=== PATIENT | female | born 1980 | race Caucasian/White ===

== ENCOUNTER 2016-03-22 17:48 | Emergency (ER) | payer BC ==
--- NOTE | 2016-03-22 19:35 | ERRECORD ---
[facility] EMERGENCY RECORD HPI FLU-LIKE SYNDROME (19:09 JROB) CHIEF COMPLAINT: Patient presents for evaluation of Chest Congestion. HISTORIAN: History provided by patient, 35 year old female who was diagnosed with "flu" despite negative swab 3 days ago, has been taking OTC meds with limited relief. She now feels like the mucous has moved down into her chest. She wanted to make sure she had pneumonia. SEVERITY: Current severity of pain rated as 5/10. TIME COURSE: Gradual onset of symptoms, Symptoms are worsening. ASSOCIATED WITH: Associated with cough, Associated with diarrhea, Associated with headache, No associated neck pain, No associated shortness of breath. EXACERBATED BY: Patient's condition exacerbated by nothing. RELIEVED BY: Patient's condition relieved by nothing. ROS (19:12 JROB) CONSTITUTIONAL: Historian reports fatigue, denies fever, reports malaise. EYES: Historian denies vision changes. ENT: Historian reports sore throat. CARDIOVASCULAR: Historian denies syncope. RESPIRATORY: Historian reports cough, denies shortness of breath. GI: Historian reports diarrhea, denies vomiting. GENITOURINARY FEMALE: Historian denies dysuria. MUSCULOSKELETAL: Historian reports myalgias. SKIN: Historian denies rash. NEUROLOGIC: Historian reports headache, denies sensory changes. HEMO/LYMPHATIC: Historian denies abnormal blood clotting. ALLERGIC/IMMUNOLOGIC: Historian denies frequent infections. PSYCHIATRIC: Historian denies alcohol abuse, denies drug abuse. NOTES: All systems reviewed, negative except as described above. PAST MEDICAL HISTORY MEDICAL HISTORY: Past medical history includes history of hyperlipidemia, high cholesterol,. (18:15 MCBE) FEMALE SURGICAL HISTORY: Surgical history of tonsillectomy, Notes: as a child along with adnoid removal, Surgical history of cholecystectomy, laparoscopic, Date of surgery 2014, Surgical history of hernia repair, Date of surgery 2014, Surgical history of hysterectomy, Date of surgery 2009, 2016, Surgical history of oophorectomy, of the right ovary, Date of surgery 2015. (18:15 MCBE) PSYCHIATRIC HISTORY: Psychiatric history includes, anxiety, depression, PTSD - CHILDHOOD. (18:15 MCBE) SOCIAL HISTORY: Patient drinks socially, rarely, Patient denies drug use, Patient has no smoking history, Lives at home, with family. (18:15 MCBE) &a-1R&a+25V*p+0X*z2086E*c202B*c15G*c2P*p-0X&a-25V&a+1R Name: Lindy Barger : 1980 F35 MedRec: [id number] AcctNum: [id number] Prepared: Petra Mar 22, 2016 19:23 by Interface Page 1 of 3 pMD [facility] EMERGENCY RECORD NOTES: Nursing records reviewed, Agree with nursing records, Medication list reviewed. (19:13 JROB) KNOWN ALLERGIES doxycycline hyclate RisperDAL CURRENT MEDICATIONS (18:12 MCBE) BuSpar: TABLET : Strength - 5 mg : ORAL Patient Dose: 15 mg Oral 2 times a day. PROzac: CAPSULE : Strength - 40 mg : ORAL Patient Dose: 60 mg Oral once a day. Ativan: TABLET : Strength - 1 mg : ORAL Patient Dose: 1 mg Oral once a day (at bedtime). VITAL SIGNS VITAL SIGNS: BP: 133/77, Pulse: 103, Resp: 18, Temp: 99.0 (Oral), Pain: 5, O2 sat: 98 on Room Air, Time: 03/22/2016 18:06. (18:06 MCBE) BP: 137/94, Pulse: 90, Resp: 18 (Non-Labored), Temp: 98.6 (Oral), O2 sat: 97 on Room Air, Time: 03/22/2016 19:11. (19:11 KASA) PHYSICAL EXAM (19:12 JROB) CONSTITUTIONAL: Vital signs reviewed, Patient afebrile, Pulse, tachycardic, Respiratory rate normal, Patient alert and oriented to person, place and time. HEAD: Head exam normal, Head exam included findings of head atraumatic. EYES: Eye exam normal, Pupils equally round and reactive to light, Extraocular muscles intact. ENT: Pharynx, injected bilaterally, Mouth exam normal. NECK: Neck exam normal, no cervical adenopathy. RESPIRATORY CHEST: Respiratory and chest exam normal, Breath sounds clear, No wheezing, No rales, No rhonchi. CARDIOVASCULAR: Cardiovascular exam included findings of, rate tachycardic, rhythm regular. ABDOMEN FEMALE: Abdominal exam included findings of abdomen nontender, no distension, no peritoneal signs. BACK: Back exam normal, Back exam included findings of normal inspection. UPPER EXTREMITY: Upper extremity exam normal, Upper extremity exam included findings of inspection normal, Motor strength normal, Sensation intact. LOWER EXTREMITY: Lower extremity exam normal, Lower extremity exam included findings of inspection normal, Motor strength normal, Sensation intact. NEURO: Neuro exam findings include patient oriented to person, &a-1R&a+25V*p+0X*k2230X*c202B*c15G*c2P*p-0X&a-25V&a+1R Name: Lindy Barger : 1980 F35 MedRec: [id number] AcctNum: [id number] Prepared: Petra Mar 22, 2016 19:23 by Interface Page 2 of 3 pMD [facility] EMERGENCY RECORD place and time, no focal motor deficits, no focal sensory deficits. SKIN: Skin exam normal, Skin exam included findings of skin warm, dry. RADIOLOGYINTERPRETATION (19:13 JROB) CHEST: Chest films negative, no infiltrates, no congestive heart failure, no effusion. LENS GRINDER AND POLISHER: Preliminary review of x-rays by, Radiologist. DOCTOR NOTES (19:13 JROB) TEXT: CXR clear. Patient tolerated some oral fluids, repeat heart rate improved to 90's. Patient reassured, no evidence of pneumonia. Discussed other OTC remedies for symptoms. Will d/c home to follow up in clinic. PATIENT STATUS: Patient has improved since arrival to emergency department. PATIENT PLAN: The patient will be discharged, The patient will follow up with primary care physician. DATA REVIEWED: Xray data reviewed. PROBLEM LIST No recorded problems DIAGNOSIS (19:15 JROB) FINAL: PRIMARY: FLU D/T OTH ID FLU VIR OTH RSP MANF. PRESCRIPTION No recorded prescriptions DISPOSITION PATIENT: Disposition Type: Discharge, Disposition: *Discharge Home. (19:15 JROB) Patient left the department. (19:21 BDON) Humphrey: ADRIEN=AIDE Dotson, Cecilia MEADOWS=MD Harpreet, Chuckie NAYAK=AIDE Gray, Amira STEELE=Magda Martinez &a-1R&a+25V*p+0X*k1417C*c202B*c15G*c2P*p-0X&a-25V&a+1R Name: Lindy Barger : 1980 F35 MedRec: [id number] AcctNum: [id number] Prepared: Petra Mar 22, 2016 19:23 by Interface Page 3 of 3 pMD MTDD
--- NOTE | 2016-03-22 19:36 | PICIS ---
[facility] [place] EMERGENCY RECORD TRIAGE (WedMar 22, 2016 18:12 MCBE) TRIAGE NOTES: WAS DIAGNOSED WITH THE FLU LAST WEDNESDAY. PATIENT REPORTS FEELING BETTER WEDNESDAY. PATIENT REPORTS SHE NOW FEELS WORSE AND IS COUGHING. FEELS LIKE SHE HAS AN INFECTION IN HER CHEST. PATIENT STATES HER COUGH IS NON-PRODUCTIVE. DAYQUIL AND NIGHTQUIL TAKEN. (WedMar 22, 2016 18:12 MCBE) PATIENT: NAME: Lindy Barger, AGE: 35, GENDER: female, : Wed1980, TIME OF GREET: WedMar 22, 2016 17:48, PREFERRED LANGUAGE: Upper Sorbian, ETHNICITY: Not or , ECODE BILLING MAP: [facility], SSN: [id number], Zip Code: [address], KG WEIGHT: 68.04, PHONE: , , , PERSON ID: [id number]. (WedMar 22, 2016 18:12 MCBE) COMPLAINT: FLU IS IN CHEST. (WedMar 22, 2016 18:12 MCBE) ADMISSION: URGENCY: 3 Urgent, ADMISSION SOURCE: Home, TRANSPORT: CAR, BED: TRIAGE. (WedMar 22, 2016 18:12 MCBE) ASSESSMENT: Assessment: BS CLEAR. (18:15 MCBE) IMMUNIZATIONS: Flu vaccine not up to date, Tetanus immunization up to date. (18:15 MCBE) SIRS SCORING: Heart Rate 55-109 (0), Temp range 96.8-101.1 (0), respiratory rate 12-24 (0), Mental Status altered: no (0), Infection or Suspected Infection: No. (18:15 MCBE) TRIAGE SCREENING: Patient denies suicidal ideation, Patient denies presence of domestic violence. (18:15 MCBE) PROVIDERS: TRIAGE NURSE: Magda Martinez. (WedMar 22, 2016 18:12 MCBE) VITAL SIGNS: BP 133/77, Pulse 103, Resp 18, Temp 99.0, (Oral), Pain 5, O2 Sat 98, on Room Air, Time 03/22/2016 18:06. (18:06 MCBE) PREVIOUS VISIT ALLERGIES: doxycycline hyclate, RisperDAL. (WedMar 22, 2016 18:12 MCBE) doxycycline hyclate, RisperDAL. (18:15 MCBE) KNOWN ALLERGIES doxycycline hyclate RisperDAL CURRENT MEDICATIONS (18:12 MCBE) BuSpar: TABLET : Strength - 5 mg : ORAL Patient Dose: 15 mg Oral 2 times a day. PROzac: CAPSULE : Strength - 40 mg : ORAL Patient Dose: 60 mg Oral once a day. Ativan: TABLET : Strength - 1 mg : ORAL Patient Dose: 1 mg Oral once a day (at bedtime). VITAL SIGNS VITAL SIGNS: BP: 133/77, Pulse: 103, Resp: 18, Temp: 99.0 (Oral), Pain: 5, O2 sat: 98 on Room Air, Time: 03/22/2016 18:06. (18:06 MCBE) &a-1R&a+25V*p+0X*n2034B*c202B*c15G*c2P*p-0X&a-25V&a+1R Name: BargerLindy Jonathan : 1980 F35 MedRec: [id number] AcctNum: [id number] Prepared: Petra Mar 22, 2016 19:28 by Interface Page [address] [facility] [place] EMERGENCY RECORD BP: 137/94, Pulse: 90, Resp: 18 (Non-Labored), Temp: 98.6 (Oral), O2 sat: 97 on Room Air, Time: 03/22/2016 19:11. [facility] NURSING PROCEDURE: DISCHARGE NOTE (19:18 BDON) DISCHARGE: Patient discharged to home, ambulating without assistance, accompanied by //partner, Summary of Care printed/ provided, Patient requested and was provided an electronic copy of Discharge Instructions, Transition record given to patient, Discharge instructions given to patient, Simple or moderate discharge teaching performed, Patient treated and evaluated by physician. NURSING PROCEDURE: NURSE NOTES (18:56 KASA) NURSES NOTES: Beverage given to patient, Notes: per ERMD. NURSING PROCEDURE: TRANSPORT TO TESTS (19:19 KPEA) TRANSPORT TO TESTS: Patient transported to x-ray, Accompanied by x-ray parking enforcement technician, Patient arrived in location at 1825, Patient departed location at 1831. ORDER DETAILS Order Name: Miscellaneous Nurse Order(s), Status: Done, Time: 18:54 03/22/2016, User: IVETTE, - Ordered for: MD Mullins Joseph, - Entered by: MD Mullins Joseph - Petra Mar 22, 2016 18:43, - Quantity: 1, Order Name: XR Chest Pa & Lat STANDARD, Status: Active, Time: 18:18 03/22/2016, User: IVETTE, - Ordered for: MD Mullins Joseph, - Entered by: Magda Martinez - Petra Mar 22, 2016 18:18, - Quantity: 1. HPI FLU-LIKE SYNDROME (19:09 JROB) CHIEF COMPLAINT: Patient presents for evaluation of Chest Congestion. HISTORIAN: History provided by patient, 35 year old female who was diagnosed with "flu" despite negative swab 3 days ago, has been taking OTC meds with limited relief. She now feels like the mucous has moved down into her chest. She wanted to make sure she had pneumonia. SEVERITY: Current severity of pain rated as 5/10. TIME COURSE: Gradual onset of symptoms, Symptoms are worsening. ASSOCIATED WITH: Associated with cough, Associated with diarrhea, Associated with headache, No associated neck pain, No associated shortness of breath. EXACERBATED BY: Patient's condition exacerbated by nothing. RELIEVED BY: Patient's condition relieved by nothing. ROS (19:12 JROB) &a-1R&a+25V*p+0X*r5027B*c202B*c15G*c2P*p-0X&a-25V&a+1R Name: Lindy Barger : 1980 F35 MedRec: [id number] AcctNum: [id number] Prepared: Petra Mar 22, 2016 19:28 by Interface Page [address] [facility] [place] EMERGENCY RECORD CONSTITUTIONAL: Historian reports fatigue, denies fever, reports malaise. EYES: Historian denies vision changes. ENT: Historian reports sore throat. CARDIOVASCULAR: Historian denies syncope. RESPIRATORY: Historian reports cough, denies shortness of breath. GI: Historian reports diarrhea, denies vomiting. GENITOURINARY FEMALE: Historian denies dysuria. MUSCULOSKELETAL: Historian reports myalgias. SKIN: Historian denies rash. NEUROLOGIC: Historian reports headache, denies sensory changes. HEMO/LYMPHATIC: Historian denies abnormal blood clotting. ALLERGIC/IMMUNOLOGIC: Historian denies frequent infections. PSYCHIATRIC: Historian denies alcohol abuse, denies drug abuse. NOTES: All systems reviewed, negative except as described above. PAST MEDICAL HISTORY MEDICAL HISTORY: Past medical history includes history of hyperlipidemia, high cholesterol,. (18:15 MCBE) FEMALE SURGICAL HISTORY: Surgical history of tonsillectomy, Notes: as a child along with adnoid removal, Surgical history of cholecystectomy, laparoscopic, Date of surgery 2014, Surgical history of hernia repair, Date of surgery 2014, Surgical history of hysterectomy, Date of surgery 2009, 2015, Surgical history of oophorectomy, of the right ovary, Date of surgery 2015. (18:15 MCBE) PSYCHIATRIC HISTORY: Psychiatric history includes, anxiety, depression, PTSD - CHILDHOOD. (18:15 MCBE) SOCIAL HISTORY: Patient drinks socially, rarely, Patient denies drug use, Patient has no smoking history, Lives at home, with family. (18:15 MCBE) NOTES: Nursing records reviewed, Agree with nursing records, Medication list reviewed. (19:13 JROB) PHYSICAL EXAM (19:12 JROB) CONSTITUTIONAL: Vital signs reviewed, Patient afebrile, Pulse, tachycardic, Respiratory rate normal, Patient alert and oriented to person, place and time. HEAD: Head exam normal, Head exam included findings of head atraumatic. EYES: Eye exam normal, Pupils equally round and reactive to light, Extraocular muscles intact. ENT: Pharynx, injected bilaterally, Mouth exam normal. NECK: Neck exam normal, no cervical adenopathy. RESPIRATORY CHEST: Respiratory and chest exam normal, Breath sounds clear, No wheezing, No rales, No rhonchi. CARDIOVASCULAR: Cardiovascular exam included findings &a-1R&a+25V*p+0X*r7808F*c202B*c15G*c2P*p-0X&a-25V&a+1R Name: Lindy Barger : 1980 F35 MedRec: [id number] AcctNum: [id number] Prepared: Petra Mar 22, 2016 19:28 by Interface Page [address] [facility] [place] EMERGENCY RECORD of, rate tachycardic, rhythm regular. ABDOMEN FEMALE: Abdominal exam included findings of abdomen nontender, no distension, no peritoneal signs. BACK: Back exam normal, Back exam included findings of normal inspection. UPPER EXTREMITY: Upper extremity exam normal, Upper extremity exam included findings of inspection normal, Motor strength normal, Sensation intact. LOWER EXTREMITY: Lower extremity exam normal, Lower extremity exam included findings of inspection normal, Motor strength normal, Sensation intact. NEURO: Neuro exam findings include patient oriented to person, place and time, no focal motor deficits, no focal sensory deficits. SKIN: Skin exam normal, Skin exam included findings of skin warm, dry. EVENTS TRANSFER: Triage to Emergency Triage. (Petra Mar 22, 2016 18:12 MCBE) Removed from Emergency Triage. (19:21 BDON) RADIOLOGYINTERPRETATION (19:13 JROB) CHEST: Chest films negative, no infiltrates, no congestive heart failure, no effusion. COUNTER CLERK: Preliminary review of x-rays by, Radiologist. O2SAT INTERPRETATION (19:13 JROB) O2SAT: Single pulse oximetry, Oxygen saturation 97%, on room air, Oxygen saturation interpretation: Normal, No intervention required. DOCTOR NOTES (19:13 JROB) TEXT: CXR clear. Patient tolerated some oral fluids, repeat heart rate improved to 90's. Patient reassured, no evidence of pneumonia. Discussed other OTC remedies for symptoms. Will d/c home to follow up in clinic. PATIENT STATUS: Patient has improved since arrival to emergency department. PATIENT PLAN: The patient will be discharged, The patient will follow up with primary care physician. DATA REVIEWED: Xray data reviewed. PROBLEM LIST No recorded problems DIAGNOSIS (19:15 JROB) FINAL: PRIMARY: FLU D/T OTH ID FLU VIR OTH RSP MANF. DISPOSITION PATIENT: Disposition Type: Discharge, Disposition: *Discharge Home. (19:15 JROB) &a-1R&a+25V*p+0X*b3598K*c202B*c15G*c2P*p-0X&a-25V&a+1R Name: Lindy Barger : 1980 F35 MedRec: [id number] AcctNum: [id number] Prepared: Petra Mar 22, 2016 19:28 by Interface Page [address] [facility] [place] EMERGENCY RECORD Patient left the department. (19:21 BDON) INSTRUCTION (19:15 JROB) DISCHARGE: INFLUENZA (ADULT). FOLLOWUP: Tory, MD, Caitlin, Ariadne, [address] [facility] [address], [facility] [address], , Follow up with Primary Care Physician in 3-4 days. SPECIAL: Follow-up with your PCP We hope you feel better soon! We are always happy to take care of you and your family! Return to the ER immediately for any new, concerning, or worsening symptoms. PRESCRIPTION No recorded prescriptions IMAGING (19:20 BDON) *DISCHARGE INSTRUCTIONS RECEIPT: Image captured from scanner. *SUPPLY CHARGE SHEET: Image captured from scanner. ADMIN DIGITAL SIGNATURE: MD Harpreet, Chuckie. (19:15 JROB) AIDE Dotson, Cecilia. (19:21 BDON) Humphrey: ADRIEN=AIDE Dotosn, Cecilia MEADOWS=MD Mullins Joseph KASA=AIDE Gray Kathy KPEA=ERIC Lozano Kim MCBE=Magda Martinez &a-1R&a+25V*p+0X*q5794A*c202B*c15G*c2P*p-0X&a-25V&a+1R Name: Denita Lindy Jonathan : 1980 F35 MedRec: [id number] AcctNum: [id number] Prepared: Petra Mar 22, 2016 19:28 by Interface Page 5 of 5 pMD MTDD
--- NOTE | 2016-03-22 20:56 | RAD ---
TWO VIEWS CHEST: Date: 03-22-16 Comparison: None. History: Flu, cough. FINDINGS: Lungs are clear. Heart and mediastinal contours are within normal limits. No acute osseous abnorma lity. IMPRESSION: No acute findings. POS: [facility]
== END 2016-03-22 19:18 | disposition home or self-care (01) ==
LOC: NAV ERS 17:48
DX: J11.1 Influenza due to unidentified influenza virus with other respiratory manifestations (principal); E78.00 Pure hypercholesterolemia, unspecified; E78.5 Hyperlipidemia, unspecified; F41.9 Anxiety disorder, unspecified; F32.9 Major depressive disorder, single episode, unspecified; Z90.49 Acquired absence of other specified parts of digestive tract; Z90.710 Acquired absence of both cervix and uterus; Z79.899 Other long term (current) drug therapy
CPT/HCPCS: 71020; 99283

== ENCOUNTER 2016-06-30 21:51 | Emergency (ER) | payer BC ==
[2016-06-30] MEDS ORDERED: Fluorescein Opthalmic Strip ONE (22:58)
[2016-06-30] MEDS ORDERED: diphenhydrAMINE HCl 25 MG CAP ONE (22:58)
[2016-06-30] MEDS ORDERED: Erythromycin Base 0.5% Oint 1 GM TUBE ONE (23:17)
== END 2016-06-30 23:20 | disposition home or self-care (01) ==
LOC: NAV ERS 21:51
DX: H10.13 Acute atopic conjunctivitis, bilateral (principal); E78.5 Hyperlipidemia, unspecified; E78.00 Pure hypercholesterolemia, unspecified; F41.9 Anxiety disorder, unspecified; F32.9 Major depressive disorder, single episode, unspecified; F43.10 Post-traumatic stress disorder, unspecified
CPT/HCPCS: 99282

== ENCOUNTER 2016-07-19 19:03 | Emergency (ER) | payer BC ==
[2016-07-19] MEDS ORDERED: Sodium Chloride 0.9% 1,000 ML ONE (19:37)
[2016-07-19] MEDS ORDERED: Famotidine/PF 20 mg/2ml Vial ONE (19:37)
[2016-07-19] MEDS ORDERED: Fentanyl 100 MCG/2 ML VIAL ONE ×2 (19:37→22:22)
[2016-07-19] MEDS ORDERED: Ondansetron HCl/PF 4 MG/2 ML Vial ONE (19:37)
[2016-07-19] MEDS ORDERED: Ketorolac Tromethamine 30 MG/ML VIAL ONE (19:37)
[2016-07-19 20:17] LABS: Bilirubin Negative (Negative); Blood, Urine Negative (Negative); Clarity Clear (Clear); Glucose, Urine (Dipstick) Negative (Negative); Leukocyte Negative (Negative); Nitrite Negative (Negative); Protein, Urine (Dipstick) Negative (Neg-Trace); Urobilinogen 0.2 mg/dL (0.2-1.0)
[2016-07-19 20:23] LABS: #Basophils 0.1 thou/uL (0.0-0.2); #Eosinphils 0.6 thou/uL (0.0-0.7); #Lymphocytes 2.6 thou/uL (1.20-3.40); #Monocytes 0.4 thou/uL (0.11-0.59); #Neutrophils 4.2 thou/uL (1.40-6.50); %Basophils 1.3 % (0.0-1.0); %Eosinophils 7.4 % (0.0-10.0); %Lymphocytes 32.7 % (21.0-51.0); %Monocytes 5.6 % (0.0-10.0); %Neutrophils 53.1 % (42.0-75.0); Hemoglobin 13.9 g/dL (12.0-16.0); Mean Corpuscular HGB CONC 33.5 g/dL (32.0-36.0); Mean Corpuscular Hemoglobin 32.4 pg (27.0-31.0); Mean Corpuscular Volume 96.9 fl (81.0-99.0); Mean Platelet Volume 9.2 fL (7.4-10.4); Platelet Count 213 thou/uL (130-400); RBC Distribution Width 11.5 % (11.5-14.5); Red Blood Cell (RBC) Count 4.29 mill/uL (4.20-5.40); White Blood Cell (WBC) Count 7.9 thou/uL (4.8-10.8)
[2016-07-19 20:37] LABS: Amylase 70 U/L (25-125); Anion Gap 16 mmol/L (10-20); BUN (Urea Nitrogen) 8 mg/dL (7.0-18.7); Calc. Creatinine Clearance 0 mL/min (70-130); Calcium 9.6 mg/dL (7.8-10.44); Carbon Dioxide 27 mmol/L (22-29); Chloride 103 mmol/L (98-107); Estimated GFR-MDRD 81; Glucose 90 mg/dL (70-105); Lipase 57 U/L (8-78); Potassium 3.8 mmol/L (3.5-5.1); Sodium 142 mmol/L (136-145)
[2016-07-19 22:33] LABS: Pregnancy Test - Urine (BHCG) NEGATIVE (NEGATIVE); Pregu Control Bar Appear? YES (CONTROL BAR)
--- NOTE | 2016-07-19 22:48 | CT ---
ABDOMEN CT WITH CONTRAST PELVIC CT WITH CONTRAST: History: Pain. Comparison: 12-06-15 Technique: An abdomen and pelvic CT are performed with oral and IV contrast. Coronal reformatted sammy ges are submitted for interpretation. FINDINGS: ABDOMEN CT: Minimal chronic changes in the lung bases. Heart size is normal. No pericardial effusion. The cervic othoracic aorta and abdominal aorta have a normal caliber. No periaortic fat stranding. Scattered no nspecific periaortic and aortocaval lymph nodes. No gastrohepatic, retrocrural, or periportal lymphadenopathy. Surgically absent gallbladder. Intra and extrahepatic portal vein is patent. Liver, spleen, pancreas, and bilateral adrenal glands have appropriate enhancement. Symmetric enhancement of the kidneys. Subcentimeter hypodensity in the lower pole of the left kidney is similar to the previous examination and cannot be further characterized. Bilaterally, no obstructive neuropathy. Note, the right kidney is rotated. Visualized ureters are un remarkable. There are a few scattered nonspecific mesenteric lymph nodes. No mass, free air or free fluid. Gastric mucosa, duodenum, and small bowel loops have an overall normal caliber. No obvious abnormali ty. Normal caliber appendix. Ileocecal junction is normal. Scattered fecal material in a nondistende d, nondilated colon. PELVIC CT: Surgically absent uterus. Urinary bladder is unremarkable. In the left adnexa, there appears to be an peripherally enhancing, centrally hypodense focus measuri ng 1.4 x 1.3 cm. Left ovary with a dominant follicle or possible cyst is favored. Follow up in 8-10 weeks is recommended to ensure resolution. This left ovary is present on the examination from 6. Follicles were identified. There are no osteoblastic or osteolytic lesions. IMPRESSION: 1. No acute abnormality in the abdomen. 2. Left adnexal structure, compatible with an ovary. There appears to be a complex cyst associated w ith the left ovary. Follow up imaging to ensure resolution is recommended. POS: [facility]
== END 2016-07-19 23:15 | disposition home or self-care (01) ==
LOC: NAV ERS 19:03
DX: R10.9 Unspecified abdominal pain (principal); R11.2 Nausea with vomiting, unspecified; E78.5 Hyperlipidemia, unspecified; E78.00 Pure hypercholesterolemia, unspecified; F41.9 Anxiety disorder, unspecified; F32.9 Major depressive disorder, single episode, unspecified; F43.10 Post-traumatic stress disorder, unspecified; Z79.899 Other long term (current) drug therapy
CPT/HCPCS: 74177; 80048; 81003; 81025; 82150; 83690; 85025; J1885; J2405; J3010; J7050; S0028

== ENCOUNTER 2016-08-28 06:57 | Outpatient (CLI) | payer BC | END 2016-08-28 06:58 | disposition home or self-care (01) | LOC: NAV LABSP 06:57 | PROVIDERS: ATTEND Family Medicine | DX: R19.7 Diarrhea, unspecified (principal) | CPT/HCPCS: 87015; 87045; 87046; 87077; 87324; 87449; 87899 ==

== ENCOUNTER 2016-10-06 14:29 | Outpatient (CLI) | payer BC ==
--- NOTE | 2016-10-06 15:41 | RAD ---
KUB: 10/06/16 HISTORY: Right lower quadrant pain. Unable to urinate. The bowel gas pattern appears nonobstructive. I do not see a distended bladder. No renal calculi are noted. Postop cholecystectomy changes are seen. IMPRESSION: No acute findings. POS: [facility]
== END 2016-10-06 14:30 | disposition home or self-care (01) ==
LOC: NAV RAD 14:29
PROVIDERS: ATTEND Family Medicine
DX: R10.31 Right lower quadrant pain (principal)
CPT/HCPCS: 74000

== ENCOUNTER 2016-10-08 15:46 | Emergency (ER) | payer BC ==
[2016-10-08 16:37] LABS: Bilirubin Negative (Negative); Blood, Urine Trace (Negative); Clarity Clear (Clear); Glucose, Urine (Dipstick) Negative (Negative); Leukocyte Negative (Negative); Nitrite Negative (Negative); Protein, Urine (Dipstick) Negative (Neg-Trace); Specific Gravity, Urine 1.015 (1.005-1.030); Urobilinogen 0.2 mg/dL (0.2-1.0)
[2016-10-08 16:39] LABS: #Basophils 0.1 thou/uL (0.0-0.2); #Eosinphils 0.5 thou/uL (0.0-0.7); #Lymphocytes 2.3 thou/uL (1.20-3.40); #Monocytes 0.6 thou/uL (0.11-0.59); #Neutrophils 3.8 thou/uL (1.40-6.50); %Basophils 1.2 % (0.0-1.0); %Eosinophils 6.3 % (0.0-10.0); %Lymphocytes 31.4 % (21.0-51.0); %Monocytes 7.8 % (0.0-10.0); %Neutrophils 53.3 % (42.0-75.0); Hemoglobin 13.4 g/dL (12.0-16.0); Mean Corpuscular HGB CONC 33.2 g/dL (32.0-36.0); Mean Corpuscular Hemoglobin 32.4 pg (27.0-31.0); Mean Corpuscular Volume 97.7 fl (81.0-99.0); Mean Platelet Volume 8.6 fL (7.4-10.4); Platelet Count 199 thou/uL (130-400); RBC Distribution Width 11.3 % (11.5-14.5); Red Blood Cell (RBC) Count 4.15 mill/uL (4.20-5.40); White Blood Cell (WBC) Count 7.2 thou/uL (4.8-10.8)
[2016-10-08] MEDS ORDERED: Ketorolac Tromethamine 30 MG/ML VIAL ONE (16:45)
[2016-10-08 16:58] LABS: ALT (SGPT) 43 U/L (8-55); AST (SGOT) 36 U/L (5-34); Albumin 4.2 g/dL (3.5-5.0); Alkaline Phosphatase 72 U/L (40-150); Anion Gap 17 mmol/L (10-20); BUN (Urea Nitrogen) 10 mg/dL (7.0-18.7); Bilirubin, Total 0.2 mg/dL (0.2-1.2); Calc. Creatinine Clearance 0 mL/min (70-130); Carbon Dioxide 23 mmol/L (22-29); Chloride 102 mmol/L (98-107); Estimated GFR-MDRD 81; Glucose 101 mg/dL (70-105); Potassium 3.6 mmol/L (3.5-5.1); Protein, Total 7.2 g/dL (6.0-8.3); Sodium 138 mmol/L (136-145)
[2016-10-08 17:05] LABS: Bacteria/HPF 2+ HPF (None Seen); RBC/HPF 0-3 HPF (0-3); Squamous Epithelial 0-3 HPF (0-3)
[2016-10-08] MEDS ORDERED: Sodium Chloride 0.9% 100 ML ONE (17:43)
[2016-10-08] MEDS ORDERED: cefTRIAXone\\ROCEPHIN 1 GM VIAL ONE (17:43)
== END 2016-10-08 18:27 | disposition home or self-care (01) ==
LOC: NAV ERS 15:46
DX: N39.0 Urinary tract infection, site not specified (principal); R10.13 Epigastric pain; E78.5 Hyperlipidemia, unspecified; F32.9 Major depressive disorder, single episode, unspecified; F41.9 Anxiety disorder, unspecified; Z79.899 Other long term (current) drug therapy; Z79.891 Long term (current) use of opiate analgesic
CPT/HCPCS: 80053; 81003; 81015; 85025; 87086; 96365; 96375; J0696; J1885; J7050

== ENCOUNTER 2016-10-09 10:36 | Emergency (ER) | payer BC ==
[2016-10-09] MEDS ORDERED: HYDROcodone/Acetaminophen 10/325 mg Tablet ONE (11:34)
[2016-10-09 12:01] LABS: #Basophils 0.1 thou/uL (0.0-0.2); #Eosinphils 0.4 thou/uL (0.0-0.7); #Lymphocytes 1.6 thou/uL (1.20-3.40); #Monocytes 0.4 thou/uL (0.11-0.59); #Neutrophils 4.2 thou/uL (1.40-6.50); %Basophils 0.8 % (0.0-1.0); %Eosinophils 5.6 % (0.0-10.0); %Lymphocytes 24.4 % (21.0-51.0); %Neutrophils 63.2 % (42.0-75.0); Hemoglobin 13.2 g/dL (12.0-16.0); Mean Corpuscular HGB CONC 32.9 g/dL (32.0-36.0); Mean Corpuscular Hemoglobin 31.7 pg (27.0-31.0); Mean Corpuscular Volume 96.4 fl (81.0-99.0); Mean Platelet Volume 8.3 fL (7.4-10.4); Platelet Count 178 thou/uL (130-400); RBC Distribution Width 11.4 % (11.5-14.5); Red Blood Cell (RBC) Count 4.17 mill/uL (4.20-5.40); White Blood Cell (WBC) Count 6.6 thou/uL (4.8-10.8)
[2016-10-09 12:05] LABS: Pregnancy Test - Urine (BHCG) Negative (NEGATIVE); Pregu Control Background? CLEAR/WHITE (CLR/WHITE); Pregu Control Bar Appear? YES (CONTROL BAR); Specific Gravity 1.005 (1.002-1.036)
[2016-10-09 12:12] LABS: Anion Gap 16 mmol/L (10-20); BUN (Urea Nitrogen) 8 mg/dL (7.0-18.7); Calc. Creatinine Clearance 0 mL/min (70-130); Carbon Dioxide 22 mmol/L (22-29); Chloride 106 mmol/L (98-107); Estimated GFR-MDRD 88; Glucose 94 mg/dL (70-105); Potassium 3.8 mmol/L (3.5-5.1); Sodium 140 mmol/L (136-145)
--- NOTE | 2016-10-09 13:53 | RAD ---
ABDOMEN 2 VIEWS: HISTORY: Abdominal pain and swelling, right-sided abdominal pain. FINDINGS/IMPRESSION: There are changes of cholecystectomy. No free air or differential fluid levels are seen. The bowel gas pattern is unremarkable. There is fecal material in the colon. No suspicious calcifications a re seen. POS: [facility]
== END 2016-10-09 12:17 | disposition home or self-care (01) ==
LOC: NAV ERS 10:36
DX: R10.11 Right upper quadrant pain (principal); R10.12 Left upper quadrant pain; R10.31 Right lower quadrant pain; F41.9 Anxiety disorder, unspecified; F32.9 Major depressive disorder, single episode, unspecified; E78.5 Hyperlipidemia, unspecified; Z90.49 Acquired absence of other specified parts of digestive tract; Z90.710 Acquired absence of both cervix and uterus; E78.00 Pure hypercholesterolemia, unspecified; Z79.899 Other long term (current) drug therapy
CPT/HCPCS: 74020; 80048; 81025; 85025

== ENCOUNTER 2017-07-12 19:02 | Emergency (ER) | payer BC ==
[2017-07-12] MEDS ORDERED: Promethazine HCl 25 MG/ML VIAL ONE (19:58)
[2017-07-12] MEDS ORDERED: HYDROcodone/Acetaminophen 10/325 mg Tablet ONE (19:58)
== END 2017-07-12 20:35 | disposition home or self-care (01) ==
LOC: NAV ERS 19:02
DX: G43.909 Migraine, unspecified, not intractable, without status migrainosus (principal); E78.5 Hyperlipidemia, unspecified; F41.9 Anxiety disorder, unspecified; F43.10 Post-traumatic stress disorder, unspecified; Z79.899 Other long term (current) drug therapy
CPT/HCPCS: 93005; 96372; J2550

== ENCOUNTER 2017-07-13 19:30 | Emergency (ER) | payer BC ==
[2017-07-13] MEDS ORDERED: Acetaminophen 500 MG TAB ONE (20:14)
== END 2017-07-13 21:02 | disposition home or self-care (01) ==
LOC: NAV ERS 19:30
DX: I10 Essential (primary) hypertension (principal); R51 Headache; E78.5 Hyperlipidemia, unspecified; F41.9 Anxiety disorder, unspecified; F32.9 Major depressive disorder, single episode, unspecified; F43.10 Post-traumatic stress disorder, unspecified; Z79.899 Other long term (current) drug therapy
CPT/HCPCS: 99283

== ENCOUNTER 2017-09-07 20:58 | Emergency (ER) | payer BC ==
[2017-09-07] MEDS ORDERED: Sulfameth/Trimethoprim DS 800-160mg TAB ONE (21:35)
== END 2017-09-07 21:37 | disposition home or self-care (01) ==
LOC: NAV ERS 20:58
DX: R21 Rash and other nonspecific skin eruption (principal); G43.909 Migraine, unspecified, not intractable, without status migrainosus; E78.5 Hyperlipidemia, unspecified; F41.9 Anxiety disorder, unspecified; F31.9 Bipolar disorder, unspecified; F43.10 Post-traumatic stress disorder, unspecified; Z79.899 Other long term (current) drug therapy
CPT/HCPCS: 99282

== ENCOUNTER 2018-06-21 14:17 | Emergency (ER) | payer BC ==
--- NOTE | 2018-06-21 15:12 | RAD ---
FEXAM: Chest PA and lateral: HISTORY: Intermittent tachycardia COMPARISON: 03/22/2016 FINDINGS: Heart: Normal size Pulmonary vessels: Normal Costophrenic angles: Costophrenic angles are clear. Lungs: No mass consolidation or masses. Pneumothorax: No pneumothorax Osseous structures: No osseous abnormalities IMPRESSION: No significant acute intrathoracic disease.
[2018-06-21 15:31] LABS: #Basophils 0.1 thou/uL (0.0-0.2); #Eosinphils 0.5 thou/uL (0.0-0.7); #Lymphocytes 1.2 thou/uL (1.20-3.40); #Monocytes 0.3 thou/uL (0.11-0.59); %Basophils 1.2 % (0.0-1.0); %Eosinophils 6.9 % (0.0-10.0); %Lymphocytes 17.3 % (21.0-51.0); %Monocytes 3.7 % (0.0-10.0); %Neutrophils 70.9 % (42.0-75.0); Hemoglobin 13.8 g/dL (12.0-16.0); Mean Corpuscular HGB CONC 31.1 g/dL (32.0-36.0); Mean Corpuscular Hemoglobin 31.4 pg (27.0-31.0); Mean Platelet Volume 7.2 fL (7.4-10.4); Platelet Count 276 thou/uL (130-400); RBC Distribution Width 13.1 % (11.5-14.5); Red Blood Cell (RBC) Count 4.41 mill/uL (4.20-5.40); White Blood Cell (WBC) Count 7.1 thou/uL (4.8-10.8)
[2018-06-21] MEDS ORDERED: Ondansetron ODT 4 MG TAB ONE (15:33)
[2018-06-21] MEDS ORDERED: Ondansetron PF 4 MG/2 ML Vial ONE (15:33)
[2018-06-21] MEDS ORDERED: Sodium Chloride 0.9% 1,000 ML ONE (15:33)
[2018-06-21 15:37] LABS: Bilirubin Negative (Negative); Blood, Urine Negative (Negative); Clarity Clear (Clear); Glucose, Urine (Dipstick) Negative (Negative); Leukocyte Negative (Negative); Nitrite Negative (Negative); Protein, Urine (Dipstick) Negative (Neg-Trace); Urobilinogen 0.2 mg/dL (0.2-1.0)
[2018-06-21 15:48] LABS: Amphetamine Not Detected (NotDetected); Barbiturates Screen Not Detected (NotDetected); Benzodiazepine Screen Detected (NotDetected); Cocaine Metabolite Screen Not Detected (NotDetected); Medtox Control Line Valid? VALID (VALID); Methadone Detected (NotDetected); Methamphetamine Not Detected (NotDetected); Opiate Screen Detected (NotDetected); Oxycodone Screen Not Detected (NotDetected); Phencyclidine (PCP) Not Detected (NotDetected); THC/Cannabinoid Screen Not Detected (NotDetected); Tricyclic Screen Detected (NotDetected)
[2018-06-21 15:54] LABS: ALT (SGPT) 19 U/L (8-55); AST (SGOT) 23 U/L (5-34); Albumin 4.5 g/dL (3.5-5.0); Alkaline Phosphatase 69 U/L (40-150); Anion Gap 15 mmol/L (10-20); BUN (Urea Nitrogen) 14 mg/dL (7.0-18.7); Bilirubin, Total 0.2 mg/dL (0.2-1.2); Calc. Creatinine Clearance 0 mL/min (70-130); Calcium 9.4 mg/dL (7.8-10.44); Carbon Dioxide 24 mmol/L (22-29); Chloride 104 mmol/L (98-107); Estimated GFR-MDRD 75; Globulin 2.7 g/dL (2.4-3.5); Glucose 94 mg/dL (70-105); Potassium 4.8 mmol/L (3.5-5.1); Protein, Total 7.2 g/dL (6.0-8.3); Sodium 138 mmol/L (136-145)
[2018-06-21] MEDS ORDERED: Acetaminophen 500 MG TAB ONE (16:36)
== END 2018-06-21 16:54 | disposition home or self-care (01) ==
LOC: NAV ERS 14:17
DX: F41.9 Anxiety disorder, unspecified (principal); E78.5 Hyperlipidemia, unspecified; G43.909 Migraine, unspecified, not intractable, without status migrainosus; F43.10 Post-traumatic stress disorder, unspecified; F32.9 Major depressive disorder, single episode, unspecified; Z79.899 Other long term (current) drug therapy
CPT/HCPCS: 71046; 80053; 80306; 81003; 84443; 84484; 85025; 96361; 96374; J2405; J7050; Q0162

== ENCOUNTER 2018-09-17 17:11 | Emergency (ER) | payer BC ==
[~2018-09-17 17:11] MED LIST: Iopamidol 370 76% 100 ML VIAL ONE
[2018-09-17] MEDS ORDERED: diphenhydrAMINE 50 MG/ML VIAL ONE (17:33)
[2018-09-17] MEDS ORDERED: Sodium Chloride 0.9% 1,000 ML ONE (17:33)
[2018-09-17] MEDS ORDERED: Morphine 4 MG/ML VIAL ONE (17:33)
[2018-09-17 17:46] LABS: #Basophils 0.1 thou/uL (0.0-0.2); #Eosinphils 0.3 thou/uL (0.0-0.7); #Lymphocytes 1.3 thou/uL (1.20-3.40); #Monocytes 0.3 thou/uL (0.11-0.59); #Neutrophils 4.5 thou/uL (1.40-6.50); %Basophils 0.8 % (0.0-1.0); %Eosinophils 5.1 % (0.0-10.0); %Lymphocytes 20.3 % (21.0-51.0); %Monocytes 4.7 % (0.0-10.0); Mean Corpuscular HGB CONC 32.2 g/dL (32.0-36.0); Mean Corpuscular Hemoglobin 31.3 pg (27.0-31.0); Mean Corpuscular Volume 97.3 fL (78.0-98.0); Mean Platelet Volume 8.3 fL (7.4-10.4); Platelet Count 246 thou/uL (130-400); RBC Distribution Width 11.7 % (11.5-14.5); Red Blood Cell (RBC) Count 4.47 mill/uL (4.20-5.40); White Blood Cell (WBC) Count 6.6 thou/uL (4.8-10.8)
[2018-09-17 18:00] LABS: ALT (SGPT) 24 U/L (8-55); AST (SGOT) 29 U/L (5-34); Albumin 4.6 g/dL (3.5-5.0); Alkaline Phosphatase 76 U/L (40-150); Anion Gap 18 mmol/L (10-20); BUN (Urea Nitrogen) 12 mg/dL (7.0-18.7); Bilirubin, Total 0.3 mg/dL (0.2-1.2); Calc. Creatinine Clearance 0 mL/min (70-130); Calcium 9.4 mg/dL (7.8-10.44); Carbon Dioxide 21 mmol/L (22-29); Chloride 104 mmol/L (98-107); Estimated GFR-MDRD 73; Globulin 3.1 g/dL (2.4-3.5); Glucose 121 mg/dL (70-105); Lipase 26 U/L (8-78); Potassium 3.5 mmol/L (3.5-5.1); Protein, Total 7.7 g/dL (6.0-8.3); Sodium 139 mmol/L (136-145)
--- NOTE | 2018-09-17 18:37 | CT ---
EXAM: Abdomen and pelvic CT scan with contrast: HISTORY: Abdominal pain prior hysterectomy COMPARISON: 07/19/2016 FINDINGS: Small hiatal hernia. The visualized lung bases are clear. Liver: Unremarkable. Gallbladder:Status post cholecystectomy. Dilated common bile duct without intrahepatic ductal dilatat ion. Pancreas:Unremarkable Spleen:Unremarkable. Adrenal glands:Unremarkable. Kidneys:No renal calculus or acute obstruction.There are some rotational changes of both kidneys. Bilateral renal cysts. No evidence for bowel obstruction. No CT evidence for acute appendicitis. The urinary bladder is unremarkable. No abscess, adenopathy, or abnormal fluid collection within the abdomen or pelvis. IMPRESSION: Small hiatal hernia. Small bilateral renal cysts. Status post cholecystectomy with some common duct d ilatation but no intrahepatic ductal dilatation. Small fat-containing umbilical hernia and bilateral inguinal hernias. No significant acute process.
[2018-09-17 18:45] LABS: Bilirubin Negative (Negative); Blood, Urine Trace (Negative); Clarity Clear (Clear); Glucose, Urine (Dipstick) Negative (Negative); Leukocyte Negative (Negative); Nitrite Negative (Negative); Protein, Urine (Dipstick) Negative (Neg-Trace); Urobilinogen 0.2 mg/dL (0.2-1.0)
[2018-09-17 19:06] LABS: Bacteria/HPF Rare-Few HPF (None Seen); RBC/HPF 0-3 HPF (0-3); Squamous Epithelial 0-3 HPF (0-3); WBC/HPF None Seen HPF (0-3)
== END 2018-09-17 19:41 | disposition home or self-care (01) ==
LOC: NAV ERS 17:11
DX: R10.84 Generalized abdominal pain (principal); E78.5 Hyperlipidemia, unspecified; G43.909 Migraine, unspecified, not intractable, without status migrainosus; F41.9 Anxiety disorder, unspecified; F32.9 Major depressive disorder, single episode, unspecified; F43.10 Post-traumatic stress disorder, unspecified; Z79.899 Other long term (current) drug therapy
CPT/HCPCS: 74177; 80053; 81003; 81015; 83605; 83690; 85025; 93005; 94760; 96361; 96372; 96374; 96375; J0500; J1200; J2270; J7050; Q9967

== ENCOUNTER 2018-09-18 20:11 | Emergency (ER) | payer BC ==
[2018-09-18] MEDS ORDERED: Sodium Chloride 0.9% 1,000 ML ONE (21:02)
== END 2018-09-18 22:05 | disposition home or self-care (01) ==
LOC: NAV ERS 20:11
DX: R55 Syncope and collapse (principal); E78.5 Hyperlipidemia, unspecified; G43.909 Migraine, unspecified, not intractable, without status migrainosus; F41.9 Anxiety disorder, unspecified; F32.9 Major depressive disorder, single episode, unspecified; F43.10 Post-traumatic stress disorder, unspecified
CPT/HCPCS: 96360; J7050

== ENCOUNTER 2018-11-28 20:28 | Emergency (ER) | payer BC ==
[2018-11-28] MEDS ORDERED: Ondansetron ODT 4 MG TAB ONE (20:39)
[2018-11-28] MEDS ORDERED: diphenhydrAMINE 25 MG CAP ONE (21:27)
== END 2018-11-28 22:09 | disposition home or self-care (01) ==
LOC: NAV ERS 20:28
DX: J06.9 Acute upper respiratory infection, unspecified (principal); T39.8X5A Adverse effect of other nonopioid analgesics and antipyretics, not elsewhere classified, initial encounter; E78.5 Hyperlipidemia, unspecified; E78.00 Pure hypercholesterolemia, unspecified; G43.909 Migraine, unspecified, not intractable, without status migrainosus; F41.9 Anxiety disorder, unspecified; F32.9 Major depressive disorder, single episode, unspecified; F43.10 Post-traumatic stress disorder, unspecified; Z79.899 Other long term (current) drug therapy
CPT/HCPCS: 94640; 94760; J7620; Q0162; Q0163

== ENCOUNTER 2019-01-01 16:52 | Emergency (ER) | payer BC ==
[2019-01-01] MEDS ORDERED: Ondansetron ODT 4 MG TAB ONE (17:31)
--- NOTE | 2019-01-01 17:58 | CT ---
EXAM: Brain CTWithout contrast: HISTORY: Headache seizure COMPARISON: 05/05/2017 FINDINGS: No focal mass or midline shift. No intra or extra-axial hemorrhage. Sinuses and mastoids are clear of acute process. IMPRESSION: No mass or bleed or other significant acute intracranial process.
== END 2019-01-01 18:07 | disposition home or self-care (01) ==
LOC: NAV ERS 16:52
DX: S09.90XA Unspecified injury of head, initial encounter (principal); E78.5 Hyperlipidemia, unspecified; G43.909 Migraine, unspecified, not intractable, without status migrainosus; F41.9 Anxiety disorder, unspecified; F32.9 Major depressive disorder, single episode, unspecified; F43.10 Post-traumatic stress disorder, unspecified; Z79.899 Other long term (current) drug therapy; W19.XXXA Unspecified fall, initial encounter
CPT/HCPCS: 70450; Q0162

== ENCOUNTER 2019-01-11 20:03 | Emergency (ER) | payer BC ==
[2019-01-11] MEDS ORDERED: Ondansetron ODT 4 MG TAB ONE (20:24)
[2019-01-11] MEDS ORDERED: Sodium Chloride 0.9% 1,000 ML ONE (20:27)
[2019-01-11 20:37] LABS: Clarity CLOUDY (Clear)
[2019-01-11 20:40] LABS: Bacteria/HPF 1+ HPF (None Seen); RBC/HPF 0-3 HPF (0-3); Squamous Epithelial 0-3 HPF (0-3); WBC/HPF 21-50 HPF (0-3)
[2019-01-11 20:42] LABS: Pregnancy Test - Urine (BHCG) Negative (Negative); Pregu Control Background? CLEAR/WHITE (CLR/WHITE); Pregu Control Bar Appear? YES (CONTROL BAR); Specific Gravity 1.018 (1.002-1.036)
[2019-01-11 21:05] LABS: #Eosinphils 0.4 thou/uL (0.0-0.7); #Lymphocytes 1.7 thou/uL (1.20-3.40); #Monocytes 0.5 thou/uL (0.11-0.59); #Neutrophils 8.6 thou/uL (1.40-6.50); %Basophils 0.3 % (0.0-1.0); %Eosinophils 3.3 % (0.0-10.0); %Monocytes 4.5 % (0.0-10.0); %Neutrophils 76.8 % (42.0-75.0); Hemoglobin 13.2 g/dL (12.0-16.0); Mean Corpuscular HGB CONC 32.7 g/dL (32.0-36.0); Mean Corpuscular Hemoglobin 32.1 pg (27.0-31.0); Mean Corpuscular Volume 98.1 fL (78.0-98.0); Platelet Count 200 thou/uL (130-400); RBC Distribution Width 12.3 % (11.5-14.5); Red Blood Cell (RBC) Count 4.12 mill/uL (4.20-5.40); White Blood Cell (WBC) Count 11.2 thou/uL (4.8-10.8)
[2019-01-11 21:22] LABS: ALT (SGPT) 18 U/L (8-55); AST (SGOT) 18 U/L (5-34); Albumin 4.3 g/dL (3.5-5.0); Alkaline Phosphatase 90 U/L (40-110); Anion Gap 17 mmol/L (10-20); BUN (Urea Nitrogen) 7 mg/dL (7.0-18.7); Bilirubin, Total 0.2 mg/dL (0.2-1.2); Calc. Creatinine Clearance 0 mL/min (70-130); Calcium 9.5 mg/dL (7.8-10.44); Carbon Dioxide 20 mmol/L (22-29); Chloride 105 mmol/L (98-107); Estimated GFR-MDRD 81; Globulin 2.8 g/dL (2.4-3.5); Glucose 97 mg/dL (70-105); Lipase 34 U/L (8-78); Potassium 3.6 mmol/L (3.5-5.1); Protein, Total 7.1 g/dL (6.0-8.3); Sodium 138 mmol/L (136-145)
--- NOTE | 2019-01-11 22:00 | CT ---
CT Abdomen Pelvis WO Con 01/11/2019 9:14 PM HISTORY: Fever, chills, and diarrhea. Abdominal discomfort starting 2 days ago. COMPARISON: 09/17/2018. Technique: Multiple contiguous axial CT images are obtained through the abdomen and pelvis without IV contrast. Coronal reformats are provided. FINDINGS: This examination is limited for the evaluation of solid organs and vascular structures due to the lac k of intravenous contrast. Lower Chest: within normal limits. Abdomen: Liver: Grossly normal nonenhanced CT appearance. Gallbladder: Surgically absent. Pancreas: Grossly normal nonenhanced CT appearance. Spleen: Grossly normal nonenhanced CT appearance. Adrenals: Grossly normal nonenhanced CT appearance. Kidneys: Subcentimeter hypodense lesion at the inferior pole left kidney is again seen and unchanged. This cannot be further characterized on this exam. This was also present on CT exam in 2017. No renal calculi are seen, and there is no hydronephrosis. Ureters: No ureteral calculus is seen.. Pelvis: Urinary bladder: within normal limits. Reproductive Organs: Evidence of hysterectomy. The left ovary is more prominent than on the prior exa m. This is difficult to further assess without IV contrast but may potentially represent the patient's left ovary with associated cyst. Lymph Nodes: No enlarged lymph nodes. Bowel: Mildly prominent fluid-filled loops of small bowel are seen Appendix: The appendix is normal in caliber. Peritoneum: No free fluid, free air, or fluid collection. Retroperitoneum: within normal limits. Vessels: Abdominal aorta is normal in caliber.. Abdominal Wall: Tiny fat-containing umbilical hernia is again present. Bones: No suspicious sclerotic or lytic osseous lesions are identified. IMPRESSION: 1. No renal or ureteral calculi are seen bilaterally. 2. Prominence of the left ovary compared to prior exam. This is difficult to further assess without I V contrast but may potentially represent the patient's left ovary with associated cyst. Been on clinical concern, a follow-up pelvic ultrasound could be performed. 3. Postcholecystectomy changes. 4. Nonspecific mildly prominent fluid-filled loops of small bowel. 5. No CT evidence of appendicitis. 6. Cholecystectomy. 7. Stable subcentimeter lesion inferior pole left kidney.
[2019-01-11] MEDS ORDERED: Cephalexin 250 MG CAP ONE (22:05)
[2019-01-11] MEDS ORDERED: Acetaminophen 325 MG TAB ONE (22:05)
[2019-01-11] MEDS ORDERED: Ondansetron PF 4 MG/2 ML Vial ONE (22:16)
== END 2019-01-11 22:25 | disposition home or self-care (01) ==
LOC: NAV ERS 20:03
DX: N39.0 Urinary tract infection, site not specified (principal); N12 Tubulo-interstitial nephritis, not specified as acute or chronic; E78.5 Hyperlipidemia, unspecified; F41.9 Anxiety disorder, unspecified; F32.9 Major depressive disorder, single episode, unspecified; F43.10 Post-traumatic stress disorder, unspecified; Z79.899 Other long term (current) drug therapy
CPT/HCPCS: 74176; 80053; 81003; 81015; 81025; 83605; 83690; 85025; 87077; 87086; 94760; 96374; J2405; J7050; Q0162

== ENCOUNTER 2019-02-10 13:20 | Emergency (ER) | payer BC ==
[2019-02-10] MEDS ORDERED: Fentanyl 100 MCG/2 ML VIAL ONE ×2 (14:11→15:31)
[2019-02-10] MEDS ORDERED: Ondansetron PF 4 MG/2 ML Vial ONE (14:11)
[2019-02-10 14:13] LABS: Bilirubin Negative (Negative); Blood, Urine Trace (Negative); Clarity Clear (Clear); Glucose, Urine (Dipstick) Negative (Negative); Leukocyte Negative (Negative); Nitrite Negative (Negative); Protein, Urine (Dipstick) Negative (Neg-Trace); Urobilinogen 0.2 mg/dL (Less than 2)
[2019-02-10 14:14] LABS: Bacteria/HPF Rare-Few HPF (None Seen); RBC/HPF 0-3 HPF (0-3); Squamous Epithelial 0-3 HPF (0-3)
[2019-02-10 14:15] LABS: Amphetamine Detected (NotDetected); Barbiturates Screen Not Detected (NotDetected); Benzodiazepine Screen Detected (NotDetected); Cocaine Metabolite Screen Not Detected (NotDetected); Medtox Control Line Valid? VALID (VALID); Methadone Not Detected (NotDetected); Methamphetamine Not Detected (NotDetected); Opiate Screen Not Detected (NotDetected); Oxycodone Screen Not Detected (NotDetected); Phencyclidine (PCP) Not Detected (NotDetected); THC/Cannabinoid Screen Not Detected (NotDetected); Tricyclic Screen Not Detected (NotDetected)
[2019-02-10 14:19] LABS: #Eosinphils 0.3 thou/uL (0.0-0.7); #Lymphocytes 1.2 thou/uL (1.20-3.40); #Monocytes 0.3 thou/uL (0.11-0.59); #Neutrophils 4.1 thou/uL (1.40-6.50); %Basophils 0.8 % (0.0-1.0); %Eosinophils 4.8 % (0.0-10.0); %Lymphocytes 20.8 % (21.0-51.0); %Neutrophils 68.7 % (42.0-75.0); Hemoglobin 13.6 g/dL (12.0-16.0); Mean Corpuscular HGB CONC 34.1 g/dL (32.0-36.0); Mean Corpuscular Hemoglobin 32.3 pg (27.0-31.0); Mean Corpuscular Volume 94.6 fL (78.0-98.0); Mean Platelet Volume 8.9 fL (7.4-10.4); Platelet Count 222 thou/uL (130-400); RBC Distribution Width 11.9 % (11.5-14.5); Red Blood Cell (RBC) Count 4.22 mill/uL (4.20-5.40)
[2019-02-10 14:39] LABS: ALT (SGPT) 20 U/L (8-55); AST (SGOT) 20 U/L (5-34); Albumin 4.4 g/dL (3.5-5.0); Alkaline Phosphatase 92 U/L (40-110); Anion Gap 17 mmol/L (10-20); BUN (Urea Nitrogen) 8 mg/dL (7.0-18.7); Bilirubin, Total 0.3 mg/dL (0.2-1.2); Calc. Creatinine Clearance 0 mL/min (70-130); Calcium 9.4 mg/dL (7.8-10.44); Carbon Dioxide 24 mmol/L (22-29); Chloride 106 mmol/L (98-107); Estimated GFR-MDRD 77; Globulin 2.5 g/dL (2.4-3.5); Glucose 103 mg/dL (70-105); Lipase 40 U/L (8-78); Potassium 3.9 mmol/L (3.5-5.1); Protein, Total 6.9 g/dL (6.0-8.3); Sodium 143 mmol/L (136-145)
--- NOTE | 2019-02-10 16:00 | CT ---
CT abdomen and pelvis: 02/10/2019 COMPARISON: 01/11/2019 and 09/17/2018 HISTORY: Abdominal pain, left-sided lumbar/back pain TECHNIQUE: Axial CT imaging at 5 mm intervals from lung bases through pubic symphysis with IV contras t. Coronal and sagittal reformatted imaging obtained. FINDINGS: The visualized lung bases are unremarkable. No free intraperitoneal air or fluid. Cholecyst ectomy clips are present. Spleen, liver, pancreas, and adrenal glands are unremarkable. Stable malrotation of right kidney. Stable subcentimeter hypodensity in the posterior mid pole left kidney, too small to characterize. There are a few scattered nonspecific fluid-filled loops of mildly prominent small bowel within the a bdomen/pelvis, unchanged when compared to prior studies performed 09/17/2018 and 01/11/2019. Appendix is unremarkable. No lymphadenopathy noted within the abdomen/pelvis. Osseous structures demonstrate no acute findings. IMPRESSION: Stable CT of the abdomen and pelvis as detailed above. Scattered nonspecific areas of flu id-filled mildly prominent small bowel again noted.
== END 2019-02-10 16:35 | disposition home or self-care (01) ==
LOC: NAV ERS 13:20
DX: R10.32 Left lower quadrant pain (principal); E78.5 Hyperlipidemia, unspecified; G43.909 Migraine, unspecified, not intractable, without status migrainosus; F41.9 Anxiety disorder, unspecified; F32.9 Major depressive disorder, single episode, unspecified; F43.10 Post-traumatic stress disorder, unspecified; Z79.899 Other long term (current) drug therapy
CPT/HCPCS: 74177; 80053; 80306; 81003; 81015; 83690; 84443; 85025; 96374; 96375; 96376; J2405; J3010; Q9967

== ENCOUNTER 2019-05-30 18:45 | Emergency (ER) | payer BC | END 2019-05-30 19:40 | disposition home or self-care (01) | LOC: NAV ERS 18:45 | DX: L02.415 Cutaneous abscess of right lower limb (principal); L03.115 Cellulitis of right lower limb; E78.5 Hyperlipidemia, unspecified; G43.909 Migraine, unspecified, not intractable, without status migrainosus; F41.9 Anxiety disorder, unspecified; F32.9 Major depressive disorder, single episode, unspecified; F43.10 Post-traumatic stress disorder, unspecified; Z79.899 Other long term (current) drug therapy | CPT/HCPCS: 99283 ==

== ENCOUNTER 2019-06-03 18:17 | Emergency (ER) | payer BC ==
[2019-06-03] MEDS ORDERED: Cephalexin 250 MG CAP ONE (18:51)
== END 2019-06-03 19:00 | disposition home or self-care (01) ==
LOC: NAV ERS 18:17
DX: L03.115 Cellulitis of right lower limb (principal); L03.116 Cellulitis of left lower limb; L03.313 Cellulitis of chest wall; L03.221 Cellulitis of neck; E78.5 Hyperlipidemia, unspecified; G43.909 Migraine, unspecified, not intractable, without status migrainosus; F41.9 Anxiety disorder, unspecified; F32.9 Major depressive disorder, single episode, unspecified; F43.10 Post-traumatic stress disorder, unspecified; Z79.899 Other long term (current) drug therapy
CPT/HCPCS: 99283

== ENCOUNTER 2019-06-10 21:43 | Emergency (ER) | payer BC ==
[2019-06-10] MEDS ORDERED: Prochlorperazine 10 MG/2 ML VIAL ONE (22:17)
[2019-06-10] MEDS ORDERED: Sodium Chloride 0.9% 1,000 ML ONE (22:17)
[2019-06-10] MEDS ORDERED: Magnesium 2 GM/50 ML BAG (IN WATER) ONE (22:17)
[2019-06-10 22:34] LABS: #Basophils 0.1 thou/uL (0.0-0.2); #Eosinphils 0.4 thou/uL (0.0-0.7); #Lymphocytes 1.9 thou/uL (1.20-3.40); #Monocytes 0.4 thou/uL (0.11-0.59); #Neutrophils 3.7 thou/uL (1.40-6.50); %Basophils 1.3 % (0.0-1.0); %Eosinophils 6.1 % (0.0-10.0); %Lymphocytes 29.3 % (21.0-51.0); %Monocytes 5.6 % (0.0-10.0); %Neutrophils 57.7 % (42.0-75.0); Hemoglobin 14.4 g/dL (12.0-16.0); Mean Corpuscular HGB CONC 33.2 g/dL (32.0-36.0); Mean Corpuscular Volume 99.4 fL (78.0-98.0); Mean Platelet Volume 9.7 fL (7.4-10.4); Platelet Count 264 thou/uL (130-400); RBC Distribution Width 12.5 % (11.5-14.5); Red Blood Cell (RBC) Count 4.35 mill/uL (4.20-5.40); White Blood Cell (WBC) Count 6.3 thou/uL (4.8-10.8)
[2019-06-10 22:49] LABS: ALT (SGPT) 16 U/L (8-55); AST (SGOT) 21 U/L (5-34); Albumin 4.2 g/dL (3.5-5.0); Alkaline Phosphatase 90 U/L (40-110); Anion Gap 16 mmol/L (10-20); BUN (Urea Nitrogen) 10 mg/dL (7.0-18.7); Bilirubin, Total 0.2 mg/dL (0.2-1.2); Calc. Creatinine Clearance 0 mL/min (70-130); Carbon Dioxide 23 mmol/L (22-29); Chloride 105 mmol/L (98-107); Estimated GFR-MDRD 79; Globulin 2.9 g/dL (2.4-3.5); Glucose 99 mg/dL (70-105); Potassium 3.6 mmol/L (3.5-5.1); Protein, Total 7.1 g/dL (6.0-8.3); Sodium 140 mmol/L (136-145)
--- NOTE | 2019-06-11 | CT ---
Exam: CTA neck with contrast CTA head with contrast HISTORY: Unable to speak for the last 2 hours. 3 [id number] seizures. COMPARISON: None TECHNIQUE: 1. Multiple contiguous axial images were obtained and a CTA of the neck with contrast. 3-D sagittal a nd coronal MIP reformats were performed. 2. Multiple contiguous axial images were obtained and a CTA of the head with contrast. 3-D sagittal a nd coronal MIP reformats were performed. FINDINGS: CTA NECK: Aortic arch: Normal origin of the carotid arteries from the arch. No significant atherosclerotic dise ase of the subclavian arteries. Right common carotid artery: No significant atherosclerotic disease or narrowing Left common carotid artery: No significant atherosclerotic disease or narrowing Right internal carotid artery: No significant atherosclerotic disease or narrowing per NASCET criteri a Right external carotid artery: No significant atherosclerotic disease or narrowing Left internal carotid artery: No significant atherosclerotic disease or narrowing per NASCET criteri a. A bubble of air is seen adjacent to the left internal carotid artery within the carotid canal. There is also a bubble of air adjacent to the left carotid bifurcation. This is nonspecific. Left external carotid artery: No significant atherosclerotic disease or narrowing Right cervical vertebral artery: No significant atherosclerotic disease or narrowing. A bubble of air is seen near the right vertebral artery just before it enters the vertebral artery foramen in the upper cervical spine. Left cervical vertebral artery: No significant atherosclerotic disease or narrowing No cervical adenopathy. The lung apices are unremarkable. A small amount of fluid is seen in the righ t maxillary sinus. The osseous structures are unremarkable. A bubble of air is seen anterior to the thyroid cartilage. A few bubbles of air are seen in the retropharyngeal space without focal fluid col lection. CTA HEAD: Right intracranial internal carotid artery: Patent without narrowing or occlusion Right anterior cerebral artery: Patent without narrowing or occlusion Right middle cerebral artery: Patent without narrowing or occlusion Left intracranial internal carotid artery: Patent without narrowing or occlusion Left anterior cerebral artery: Patent without narrowing or occlusion Left middle cerebral artery: Patent without narrowing or occlusion No aneurysmal dilatation is seen in the anterior circulation. Right vertebral artery: Patent without narrowing or occlusion Left vertebral artery: Patent without narrowing or occlusion Basilar artery: Patent without narrowing or occlusion The posterior cerebral arteries and cerebellar arteries are patent without narrowing or occlusion. No aneurysmal dilatation is seen in the posterior circulation. IMPRESSION: 1. No significant CTA abnormality of the neck 2. No significant CTA abnormality of the head 3. Nonspecific scattered foci of air within the neck as above.
== END 2019-06-11 00:15 | disposition home or self-care (01) ==
LOC: NAV ERS 21:43
DX: G43.909 Migraine, unspecified, not intractable, without status migrainosus (principal); R47.01 Aphasia; E78.5 Hyperlipidemia, unspecified; F41.9 Anxiety disorder, unspecified; F43.10 Post-traumatic stress disorder, unspecified; F32.9 Major depressive disorder, single episode, unspecified; Z79.899 Other long term (current) drug therapy
CPT/HCPCS: 36416; 70496; 70498; 80053; 85025; 93005; 96374; 96375; J0780; J3475; J7050; Q9967

== ENCOUNTER 2019-09-21 18:29 | Emergency (ER) | payer BC | END 2019-09-21 18:56 | disposition home or self-care (01) | LOC: NAV ERS 18:29 | DX: M79.631 Pain in right forearm (principal); L53.9 Erythematous condition, unspecified; E78.5 Hyperlipidemia, unspecified; F41.9 Anxiety disorder, unspecified; F32.9 Major depressive disorder, single episode, unspecified; F43.10 Post-traumatic stress disorder, unspecified; Z79.899 Other long term (current) drug therapy | CPT/HCPCS: 99282 ==

== ENCOUNTER 2019-10-25 19:26 | Emergency (ER) | payer BC ==
[2019-10-25] MEDS ORDERED: Sodium Chloride 0.9% 1,000 ML ONE ×2 (20:35→22:22)
[2019-10-25] MEDS ORDERED: Ondansetron PF 4 MG/2 ML Vial ONE (20:35)
[2019-10-25] MEDS ORDERED: Fentanyl 100 MCG/2 ML VIAL ONE (20:35)
[2019-10-25 20:53] LABS: #Lymphocytes 2.3 thou/uL (1.20-3.40); #Monocytes 0.7 thou/uL (0.11-0.59); #Neutrophils 13.4 thou/uL (1.40-6.50); %Basophils 0.3 % (0.0-1.0); %Eosinophils 0.1 % (0.0-10.0); %Lymphocytes 13.7 % (21.0-51.0); %Monocytes 4.4 % (0.0-10.0); %Neutrophils 81.6 % (42.0-75.0); Hemoglobin 13.6 g/dL (12.0-16.0); Mean Corpuscular HGB CONC 32.2 g/dL (32.0-36.0); Mean Corpuscular Hemoglobin 32.4 pg (27.0-31.0); Mean Platelet Volume 10.2 fL (7.4-10.4); Platelet Count 226 thou/uL (130-400); RBC Distribution Width 12.5 % (11.5-14.5); Red Blood Cell (RBC) Count 4.19 mill/uL (4.20-5.40); White Blood Cell (WBC) Count 16.5 thou/uL (4.8-10.8)
[2019-10-25 21:12] LABS: ALT (SGPT) 12 U/L (8-55); AST (SGOT) 16 U/L (5-34); Albumin 4.6 g/dL (3.5-5.0); Alkaline Phosphatase 71 U/L (40-110); Anion Gap 17 mmol/L (10-20); BUN (Urea Nitrogen) 17 mg/dL (7.0-18.7); Bilirubin, Total 0.3 mg/dL (0.2-1.2); Calc. Creatinine Clearance 0 mL/min (70-130); Calcium 9.5 mg/dL (7.8-10.44); Carbon Dioxide 22 mmol/L (22-29); Chloride 103 mmol/L (98-107); Estimated GFR-MDRD 57; Globulin 2.7 g/dL (2.4-3.5); Glucose 108 mg/dL (70-105); Potassium 3.4 mmol/L (3.5-5.1); Protein, Total 7.3 g/dL (6.0-8.3); Sodium 139 mmol/L (136-145)
--- NOTE | 2019-10-25 21:15 | CT ---
CT BRAIN WITHOUT CONTRAST: HISTORY: Syncope, injury, headache COMPARISON: 01/01/2019 FINDINGS: No evidence of acute infarct, hemorrhage, midline shift or abnormal extra-axial fluid collections is seen. The ventricular size is appropriate and the basilar cisterns are patent. The bony calvarium is intact. The visualized paranasal sinuses and mastoid air cells are well aerated. IMPRESSION: No CT evidence of acute intracranial process.
--- NOTE | 2019-10-25 21:23 | RAD ---
PA CHEST AND RIGHT RIB SERIES: 10/25/19 HISTORY: Injury, right chest pain. FINDINGS/IMPRESSION: The heart size is normal. The lungs are well expanded without lobar consolidation, pneumothoraces, or pleural effusions. No right rib fracture is seen. POS: OFF
[2019-10-25 22:11] LABS: Bilirubin Negative (Negative); Blood, Urine Trace (Negative); Clarity Clear (Clear); Glucose, Urine (Dipstick) Negative (Negative); Ketone, Urine Negative (Negative); Leukocyte Trace (Negative); Nitrite Negative (Negative); Protein, Urine (Dipstick) Negative (Neg-Trace); Specific Gravity, Urine 1.015 (1.005-1.030); Urobilinogen 0.2 mg/dL (Less than 2); pH, Urine 5.5 (5.0-9.0)
[2019-10-25 22:14] LABS: Bacteria/HPF 3+ HPF (None Seen); RBC/HPF 0-3 HPF (0-3)
[2019-10-25] MEDS ORDERED: Morphine 4 MG/ML VIAL ONE (22:33)
[2019-10-25] MEDS ORDERED: diphenhydrAMINE 25 MG CAP ONE (22:36)
[2019-10-25] MEDS ORDERED: AMOXicillin 250 MG CAP ONE (22:50)
== END 2019-10-25 23:05 | disposition home or self-care (01) ==
LOC: NAV ERS 19:26
DX: S20.211A Contusion of right front wall of thorax, initial encounter (principal); S00.03XA Contusion of scalp, initial encounter; J01.90 Acute sinusitis, unspecified; B96.89 Other specified bacterial agents as the cause of diseases classified elsewhere; G40.A09 Absence epileptic syndrome, not intractable, without status epilepticus; E78.5 Hyperlipidemia, unspecified; G43.909 Migraine, unspecified, not intractable, without status migrainosus; F41.9 Anxiety disorder, unspecified; F32.9 Major depressive disorder, single episode, unspecified; F43.10 Post-traumatic stress disorder, unspecified; Z79.899 Other long term (current) drug therapy; X58.XXXA Exposure to other specified factors, initial encounter
CPT/HCPCS: 70450; 80053; 81003; 81015; 84443; 85025; 87081; 87430; 87804; 96361; 96374; 96375; J2270; J2405; J3010; J7050; Q0163

== ENCOUNTER 2020-01-01 21:51 | Emergency (ER) | payer BC ==
[2020-01-01] MEDS ORDERED: Aspirin Chewable 81 MG TAB ONE (22:15)
[2020-01-01] MEDS ORDERED: Ondansetron PF 4 MG/2 ML Vial ONE (22:23)
[2020-01-01 22:27] LABS: #Basophils 0.1 thou/uL (0.0-0.2); #Eosinphils 0.3 thou/uL (0.0-0.7); #Lymphocytes 2.3 thou/uL (1.20-3.40); #Monocytes 0.3 thou/uL (0.11-0.59); #Neutrophils 5.4 thou/uL (1.40-6.50); %Basophils 0.8 % (0.0-1.0); %Eosinophils 3.4 % (0.0-10.0); %Lymphocytes 27.4 % (21.0-51.0); %Monocytes 3.8 % (0.0-10.0); %Neutrophils 64.5 % (42.0-75.0); Hemoglobin 14.1 g/dL (12.0-16.0); Mean Corpuscular HGB CONC 31.8 g/dL (32.0-36.0); Mean Platelet Volume 10.4 fL (7.4-10.4); Platelet Count 223 thou/uL (130-400); RBC Distribution Width 11.5 % (11.5-14.5); White Blood Cell (WBC) Count 8.4 thou/uL (4.8-10.8)
[2020-01-01 22:45] LABS: ALT (SGPT) 20 U/L (8-55); AST (SGOT) 22 U/L (5-34); Albumin 4.7 g/dL (3.5-5.0); Alkaline Phosphatase 76 U/L (40-110); Anion Gap 14 mmol/L (10-20); BUN (Urea Nitrogen) 8 mg/dL (7.0-18.7); Bilirubin, Total 0.3 mg/dL (0.2-1.2); CK (CPK) 109 U/L (29-168); Calc. Creatinine Clearance 0 mL/min (70-130); Calcium 9.4 mg/dL (7.8-10.44); Carbon Dioxide 27 mmol/L (22-29); Chloride 101 mmol/L (98-107); Estimated GFR-MDRD 81; Globulin 2.9 g/dL (2.4-3.5); Glucose 94 mg/dL (70-105); Lipase 56 U/L (8-78); Potassium 3.2 mmol/L (3.5-5.1); Protein, Total 7.6 g/dL (6.0-8.3); Sodium 139 mmol/L (136-145)
[2020-01-01] MEDS ORDERED: Cyclobenzaprine 10 MG TAB ONE (23:00)
--- NOTE | 2020-01-02 07:16 | RAD ---
PORTABLE CHEST: Date: 01/01/2020 HISTORY: Chest pain, left-sided. Shortness of breath. FINDINGS: Heart size and mediastinum are within normal limits. Lungs are clear of infiltrates. No significant b hamzah findings. IMPRESSION: No active intrathoracic disease. POS: OFF
== END 2020-01-01 23:05 | disposition home or self-care (01) ==
LOC: NAV ERS 21:51
DX: R07.89 Other chest pain (principal); M62.838 Other muscle spasm; E78.5 Hyperlipidemia, unspecified; G43.909 Migraine, unspecified, not intractable, without status migrainosus; F41.9 Anxiety disorder, unspecified; F32.9 Major depressive disorder, single episode, unspecified; F43.10 Post-traumatic stress disorder, unspecified; Z79.899 Other long term (current) drug therapy
CPT/HCPCS: 36415; 71045; 80053; 82550; 83690; 84484; 85025; 93005; 96374; J2405

== ENCOUNTER 2020-04-01 08:12 | Emergency (ER) | payer BC ==
[2020-04-01] MEDS ORDERED: Morphine 4 MG/ML VIAL ONE (08:43)
[2020-04-01] MEDS ORDERED: diphenhydrAMINE 25 MG CAP ONE (08:43)
[2020-04-01] MEDS ORDERED: Sodium Chloride 0.9% 1,000 ML ONE (08:51)
--- NOTE | 2020-04-01 08:52 | CT ---
CT BRAIN NONCONTRAST: DATE: 04/01/2020 HISTORY: 39-year-old female status post acute head trauma from fall after seizure FINDINGS: There is no evidence of acute intra-axial or extra-axial hemorrhage. There is no midline shift or any other mass effect. There is no extra-axial fluid collection. The ventricles are normal in size and configuration. The tympanomastoid cavities, and the upper portions of the paranasal sinuses included in these images, are grossly clear. Calvarium is intact. IMPRESSION: Normal.
[2020-04-01 09:22] LABS: #Eosinphils 0.1 thou/uL (0.0-0.7); #Lymphocytes 1.4 thou/uL (1.20-3.40); #Monocytes 0.2 thou/uL (0.11-0.59); #Neutrophils 2.2 thou/uL (1.40-6.50); %Basophils 0.8 % (0.0-1.0); %Eosinophils 2.6 % (0.0-10.0); %Lymphocytes 35.6 % (21.0-51.0); %Monocytes 5.8 % (0.0-10.0); %Neutrophils 55.2 % (42.0-75.0); Hemoglobin 13.6 g/dL (12.0-16.0); Mean Corpuscular HGB CONC 33.5 g/dL (32.0-36.0); Mean Corpuscular Volume 98.6 fL (78.0-98.0); Mean Platelet Volume 8.7 fL (7.4-10.4); Platelet Count 195 thou/uL (130-400); RBC Distribution Width 11.3 % (11.5-14.5); Red Blood Cell (RBC) Count 4.13 mill/uL (4.20-5.40)
--- NOTE | 2020-04-01 09:25 | CT ---
CT CERVICAL SPINE WITHOUT CONTRAST: Date: 04/01/2020 HISTORY: Left-sided head pain after fall. Seizure. COMPARISON: CT angiogram of neck dated 06/10/2019. FINDINGS: The occipital condyles are intact. The odontoid process is intact. No acute cervical spine fracture o r malalignment. Multilevel disc osteophyte complexes cause neural foraminal and spinal canal narrowin g of the lower cervical spine. The cervical spine transverse processes are intact. The spinous processes are intact. Lung apices are clear. No paraspinal muscle edema. IMPRESSION: No acute cervical spine fracture or malalignment. POS: HOME
[2020-04-01 09:38] LABS: ALT (SGPT) 11 U/L (8-55); AST (SGOT) 16 U/L (5-34); Albumin 4.2 g/dL (3.5-5.0); Alkaline Phosphatase 63 U/L (40-110); Anion Gap 13 mmol/L (10-20); BUN (Urea Nitrogen) 13 mg/dL (7.0-18.7); Bilirubin, Total 0.6 mg/dL (0.2-1.2); Calc. Creatinine Clearance 0 mL/min (70-130); Calcium 8.9 mg/dL (7.8-10.44); Carbon Dioxide 26 mmol/L (22-29); Chloride 107 mmol/L (98-107); Globulin 2.5 g/dL (2.4-3.5); Glucose 102 mg/dL (70-105); Lipase 30 U/L (8-78); Potassium 4.3 mmol/L (3.5-5.1); Protein, Total 6.7 g/dL (6.0-8.3); Sodium 142 mmol/L (136-145)
== END 2020-04-01 10:00 | disposition home or self-care (01) ==
LOC: NAV ERS 08:12
DX: G40.A09 Absence epileptic syndrome, not intractable, without status epilepticus (principal); S09.90XA Unspecified injury of head, initial encounter; E78.5 Hyperlipidemia, unspecified; G43.909 Migraine, unspecified, not intractable, without status migrainosus; Z79.899 Other long term (current) drug therapy; W18.30XA Fall on same level, unspecified, initial encounter
CPT/HCPCS: 70450; 72125; 80053; 83690; 85025; 96372; J2270; J7050; Q0163

== ENCOUNTER 2020-05-09 13:20 | Emergency (ER) | payer BC ==
[2020-05-09 14:28] LABS: Bilirubin Negative (Negative); Blood, Urine Trace (Negative); Clarity Clear (Clear); Glucose, Urine (Dipstick) Negative (Negative); Ketone, Urine Negative (Negative); Leukocyte Negative (Negative); Nitrite Negative (Negative); Protein, Urine (Dipstick) Negative (Neg-Trace); Specific Gravity, Urine Less/Equal 1.005 (1.005-1.030); Urobilinogen 0.2 mg/dL (Less than 2); pH, Urine 5.5 (5.0-9.0)
[2020-05-09 14:38] LABS: ALT (SGPT) 16 U/L (8-55); AST (SGOT) 18 U/L (5-34); Albumin 4.2 g/dL (3.5-5.0); Alkaline Phosphatase 70 U/L (40-110); Anion Gap 14 mmol/L (10-20); BUN (Urea Nitrogen) 11 mg/dL (7.0-18.7); Bilirubin, Total 0.2 mg/dL (0.2-1.2); Calc. Creatinine Clearance 0 mL/min (70-130); Calcium 8.6 mg/dL (7.8-10.44); Carbon Dioxide 26 mmol/L (22-29); Chloride 107 mmol/L (98-107); Globulin 2.4 g/dL (2.4-3.5); Glucose 101 mg/dL (70-105); Lipase 51 U/L (8-78); Potassium 3.8 mmol/L (3.5-5.1); Protein, Total 6.6 g/dL (6.0-8.3); Sodium 143 mmol/L (136-145)
[2020-05-09] MEDS ORDERED: Morphine 4 MG/ML VIAL ONE ×2 (14:39→17:05)
[2020-05-09 14:40] LABS: Bacteria/HPF Rare-Few HPF (None Seen); RBC/HPF 0-3 HPF (0-3); Squamous Epithelial None Seen HPF (0-3); WBC/HPF None Seen HPF (0-3)
[2020-05-09 14:42] LABS: #Eosinphils 0.1 thou/uL (0.0-0.7); #Lymphocytes 0.4 thou/uL (1.20-3.40); #Monocytes 0.2 thou/uL (0.11-0.59); #Neutrophils 2.6 thou/uL (1.40-6.50); %Basophils 1.1 % (0.0-1.0); %Eosinophils 1.9 % (0.0-10.0); %Monocytes 7.2 % (0.0-10.0); %Neutrophils 77.8 % (42.0-75.0); Hemoglobin 13.9 g/dL (12.0-16.0); Mean Corpuscular HGB CONC 33.7 g/dL (32.0-36.0); Mean Corpuscular Hemoglobin 33.3 pg (27.0-31.0); Mean Corpuscular Volume 98.7 fL (78.0-98.0); Mean Platelet Volume 9.8 fL (7.4-10.4); Platelet Count 153 thou/uL (130-400); Red Blood Cell (RBC) Count 4.17 mill/uL (4.20-5.40); White Blood Cell (WBC) Count 3.3 thou/uL (4.8-10.8)
[2020-05-09] MEDS ORDERED: diphenhydrAMINE 50 MG/ML VIAL ONE (14:42)
[2020-05-09] MEDS ORDERED: Sodium Chloride 0.9% 1,000 ML ONE (14:43)
[2020-05-09] MEDS ORDERED: Metoclopramide HCl 10 MG/2 ML VIAL ONE (14:43)
[2020-05-09 15:19] LABS: Platelet Morphology Comment Appears Adequate; RBC Morphology Normal
--- NOTE | 2020-05-09 17:23 | CT ---
CT ABDOMEN AND PELVIS WITH IV CONTRAST: 05/09/20 Oral contrast was administered. INDICATIONS: Right lower quadrant abdominal pain. COMPARISON: CT abdomen and pelvis 02/10/19. FINDINGS: Lung bases are clear. Liver, spleen and pancreas unremarkable. Post cholecystectomy changes. Mildly prominent common bile d uct is stable from the prior study. Stomach and duodenum unremarkable. Adrenal glands and kidneys unremarkable. A low density lesion in the posterior left renal cortex is s table from prior exam and most likely represents cystic lesion. There is incomplete rotation of the r ight kidney which was noted previously. Small bowel loops show nonspecific distention without dilatation. The appendix is normal and is air filled. The colon is unremarkable. Aorta normal caliber. No adenopathy seen. Images through the pelvis show m ildly distended urinary bladder which appears unremarkable. There is evidence of hysterectomy. The pe lvis is otherwise unremarkable. Osseous structures unremarkable. IMPRESSION: No acute process. Nonspecific small bowel distention without dilatation. POS: [facility]
== END 2020-05-09 17:12 | disposition home or self-care (01) ==
LOC: NAV ERS 13:20
DX: R10.31 Right lower quadrant pain (principal); E78.5 Hyperlipidemia, unspecified; Z79.899 Other long term (current) drug therapy
CPT/HCPCS: 36415; 74177; 80053; 81003; 81015; 83605; 83690; 85025; 96374; 96375; 96376; J1200; J2270; J2765; J7050

== ENCOUNTER 2020-05-14 11:39 | Emergency (ER) | payer BC ==
[2020-05-14 13:08] LABS: Bilirubin Negative (Negative); Blood, Urine Negative (Negative); Clarity Clear (Clear); Glucose, Urine (Dipstick) Negative (Negative); Ketone, Urine Negative (Negative); Leukocyte Negative (Negative); Nitrite Negative (Negative); Protein, Urine (Dipstick) Negative (Neg-Trace); Urobilinogen 0.2 mg/dL (Less than 2)
[2020-05-14 13:09] LABS: #Eosinphils 0.1 thou/uL (0.0-0.7); #Lymphocytes 1.1 thou/uL (1.20-3.40); #Monocytes 0.2 thou/uL (0.11-0.59); #Neutrophils 2.3 thou/uL (1.40-6.50); %Basophils 0.5 % (0.0-1.0); %Eosinophils 2.9 % (0.0-10.0); %Monocytes 5.1 % (0.0-10.0); %Neutrophils 62.5 % (42.0-75.0); Hemoglobin 14.2 g/dL (12.0-16.0); Mean Corpuscular HGB CONC 33.6 g/dL (32.0-36.0); Mean Corpuscular Hemoglobin 32.9 pg (27.0-31.0); Mean Platelet Volume 12.5 fL (7.4-10.4); Platelet Count 93 thou/uL (130-400); RBC Distribution Width 11.2 % (11.5-14.5); Red Blood Cell (RBC) Count 4.32 mill/uL (4.20-5.40); White Blood Cell (WBC) Count 3.6 thou/uL (4.8-10.8)
[2020-05-14 13:14] LABS: ALT (SGPT) 35 U/L (8-55); AST (SGOT) 31 U/L (5-34); Alkaline Phosphatase 99 U/L (40-110); Anion Gap 13 mmol/L (10-20); BUN (Urea Nitrogen) 8 mg/dL (7.0-18.7); Bilirubin, Total 0.2 mg/dL (0.2-1.2); Calc. Creatinine Clearance 0 mL/min (70-130); Calcium 8.4 mg/dL (7.8-10.44); Carbon Dioxide 28 mmol/L (22-29); Chloride 104 mmol/L (98-107); Globulin 2.6 g/dL (2.4-3.5); Glucose 89 mg/dL (70-105); Potassium 3.7 mmol/L (3.5-5.1); Protein, Total 6.6 g/dL (6.0-8.3); Sodium 141 mmol/L (136-145)
--- NOTE | 2020-05-14 13:21 | RAD ---
EXAM: Chest 2 views: HISTORY: Right lower quadrant pain with fever COMPARISON: 06/21/2018 FINDINGS: There is a normal-sized cardiomediastinal silhouette. There is no evidence of consolidation, mass, or pleural effusion. No acute osseous abnormality. Cholecystectomy clips are seen. IMPRESSION: No evidence of acute cardiopulmonary disease
[2020-05-14 13:32] LABS: Large Platelets SLIGHT; MDiff Complete? YES; Platelet Morphology Comment Appears Decreased
[2020-05-14] MEDS ORDERED: HYDROcodone/Acetaminophen 5/325 mg Tablet ONE (14:00)
[2020-05-15 05:12] LABS: SARS-CoV-2 PCR by NAA DETECTED (NotDetected)
== END 2020-05-14 15:30 | disposition left against medical advice (07) ==
LOC: NAV ERS 11:39
DX: U07.1 COVID-19 (principal); E78.5 Hyperlipidemia, unspecified; Z79.899 Other long term (current) drug therapy
CPT/HCPCS: 71046; 80053; 81003; 83605; 84484; 85025; 85379; 87635; 93005; U0003; U0005

== ENCOUNTER 2020-05-17 09:31 | Emergency (ER) | payer BC ==
[2020-05-17] MEDS ORDERED: Morphine 4 MG/ML VIAL ONE (10:11)
[2020-05-17] MEDS ORDERED: Ondansetron PF 4 MG/2 ML Vial ONE ×2 (10:11→10:12)
[2020-05-17] MEDS ORDERED: Fentanyl 100 MCG/2 ML VIAL ONE (10:13)
[2020-05-17 10:43] LABS: #Lymphocytes 0.7 thou/uL (1.20-3.40); #Monocytes 0.2 thou/uL (0.11-0.59); %Basophils 0.5 % (0.0-1.0); %Eosinophils 0.8 % (0.0-10.0); %Lymphocytes 23.1 % (21.0-51.0); %Monocytes 5.2 % (0.0-10.0); %Neutrophils 70.4 % (42.0-75.0); Hemoglobin 13.5 g/dL (12.0-16.0); Mean Corpuscular HGB CONC 32.9 g/dL (32.0-36.0); Mean Corpuscular Hemoglobin 32.5 pg (27.0-31.0); Mean Corpuscular Volume 98.9 fL (78.0-98.0); Mean Platelet Volume 9.9 fL (7.4-10.4); Platelet Count 114 thou/uL (130-400); RBC Distribution Width 11.6 % (11.5-14.5); Red Blood Cell (RBC) Count 4.15 mill/uL (4.20-5.40); White Blood Cell (WBC) Count 2.9 thou/uL (4.8-10.8)
--- NOTE | 2020-05-17 10:44 | RAD ---
EXAM: Chest one view: HISTORY: Coughing up blood, rash, nausea, Covid positive COMPARISON: 05/14/2020 FINDINGS: Heart size: Within normal limits. Lungs: Clear of acute process. No evidence for confluent lobar pneumonia, significant pleural effusion, acute edema, or pneumothorax , or other significant acute process. IMPRESSION: No significant acute intrathoracic disease. Stable exam.
[2020-05-17 11:05] LABS: ALT (SGPT) 22 U/L (8-55); AST (SGOT) 33 U/L (5-34); Albumin 3.9 g/dL (3.5-5.0); Alkaline Phosphatase 92 U/L (40-110); Anion Gap 13 mmol/L (10-20); BUN (Urea Nitrogen) 13 mg/dL (7.0-18.7); Bilirubin, Total 0.2 mg/dL (0.2-1.2); Calc. Creatinine Clearance 0 mL/min (70-130); Calcium 8.4 mg/dL (7.8-10.44); Carbon Dioxide 28 mmol/L (22-29); Chloride 106 mmol/L (98-107); Globulin 2.5 g/dL (2.4-3.5); Glucose 86 mg/dL (70-105); Lipase 43 U/L (8-78); Potassium 3.8 mmol/L (3.5-5.1); Protein, Total 6.4 g/dL (6.0-8.3); Sodium 143 mmol/L (136-145)
[2020-05-17 11:11] LABS: Bilirubin Negative (Negative); Blood, Urine Negative (Negative); Clarity Clear (Clear); Glucose, Urine (Dipstick) Negative (Negative); Ketone, Urine Negative (Negative); Leukocyte Negative (Negative); Nitrite Negative (Negative); Protein, Urine (Dipstick) Negative (Neg-Trace); Urobilinogen 0.2 mg/dL (Less than 2)
[2020-05-17 11:13] LABS: Prothrombin Time 13.4 sec (12.0-14.7)
[2020-05-17 11:14] LABS: D-Dimer Test 0.5 *mcg/mL (0.27-0.43); PTT 38.3 sec (22.9-36.1)
[2020-05-17 11:16] LABS: Pregnancy Test - Urine (BHCG) Negative (Negative); Pregu Control Background? CLEAR/WHITE (CLR/WHITE); Pregu Control Bar Appear? YES (CONTROL BAR)
--- NOTE | 2020-05-17 12:18 | CT ---
CTA Angio Chest W WO Con 05/17/2020 11:28 AM Indication: History of hemoptysis, Covid positive diagnosis, rash and nausea Technique: Multiple CTA images were obtained of the thorax with IV contrast. 3-D rendering: MIP sina nstructed images were created and reviewed. Comparison: Chest Dated May 14, 2020 Findings: Pulmonary arteries: No central or segmental pulmonary embolus is evident. Heart and Aorta: Normal appearing. Mediastinum:Normal appearing. No enlarged lymph nodes. Lungs:There are patchy areas of peripheral subpleural groundglass airspace opacities seen within both upper lobes, lingula and both lower lobes. Pleural space: Clear. Upper Abdomen: No acute abnormality. Osseous Structures: No acute fracture or subluxation demonstrated. There is scattered degenerative a nd osteoarthritic change present. Soft tissues:No abnormality. Other findings:None. Impression: 1. No central or segmental pulmonary embolus identified. 2. Bilateral patchy subpleural groundglass airspace opacities are suspicious for pneumonia.
== END 2020-05-17 13:10 | disposition home or self-care (01) ==
LOC: NAV ERS 09:31
DX: U07.1 COVID-19 (principal); J12.82 Pneumonia due to coronavirus disease 2019; R04.2 Hemoptysis; E78.5 Hyperlipidemia, unspecified; Z79.899 Other long term (current) drug therapy
CPT/HCPCS: 71045; 71275; 80053; 81003; 81025; 83690; 83735; 84484; 85025; 85379; 85610; 85730; 94760; 96374; 96375; J2270; J2405; J3010

== ENCOUNTER 2020-05-20 10:08 | Emergency (ER) | payer BC ==
--- NOTE | 2020-05-20 11:01 | RAD ---
PORTABLE CHEST: HISTORY: COVID positive, right-sided pain. COMPARISON: 05/17/2020 exam. FINDINGS: Heart size and mediastinum are within normal limits. The lungs are clear of any infiltrates. No sig nificant bony findings. IMPRESSION: No active intrathoracic disease. POS: [facility]
[2020-05-20] MEDS ORDERED: Sodium Chloride 0.9% 1,000 ML ONE (11:08)
[2020-05-20] MEDS ORDERED: Fentanyl 100 MCG/2 ML VIAL ONE (11:30)
[2020-05-20 11:37] LABS: #Monocytes 0.3 thou/uL (0.11-0.59); %Basophils 0.4 % (0.0-1.0); %Eosinophils 1.4 % (0.0-10.0); %Lymphocytes 29.3 % (21.0-51.0); %Monocytes 8.6 % (0.0-10.0); %Neutrophils 60.3 % (42.0-75.0); Hemoglobin 14.7 g/dL (12.0-16.0); Mean Corpuscular HGB CONC 33.7 g/dL (32.0-36.0); Mean Corpuscular Hemoglobin 32.7 pg (27.0-31.0); Mean Corpuscular Volume 96.9 fL (78.0-98.0); Mean Platelet Volume 8.7 fL (7.4-10.4); Platelet Count 164 thou/uL (130-400); RBC Distribution Width 10.9 % (11.5-14.5); Red Blood Cell (RBC) Count 4.49 mill/uL (4.20-5.40); White Blood Cell (WBC) Count 3.2 thou/uL (4.8-10.8)
[2020-05-20 11:48] LABS: ALT (SGPT) 24 U/L (8-55); AST (SGOT) 28 U/L (5-34); Albumin 4.3 g/dL (3.5-5.0); Alkaline Phosphatase 100 U/L (40-110); Anion Gap 15 mmol/L (10-20); BUN (Urea Nitrogen) 6 mg/dL (7.0-18.7); Bilirubin, Total 0.5 mg/dL (0.2-1.2); Calc. Creatinine Clearance 0 mL/min (70-130); Calcium 9.2 mg/dL (7.8-10.44); Carbon Dioxide 28 mmol/L (22-29); Chloride 104 mmol/L (98-107); Globulin 2.6 g/dL (2.4-3.5); Glucose 92 mg/dL (70-105); Protein, Total 6.9 g/dL (6.0-8.3); Sodium 143 mmol/L (136-145)
== END 2020-05-20 12:10 | disposition home or self-care (01) ==
LOC: NAV ERS 10:08
DX: U07.1 COVID-19 (principal); E86.0 Dehydration; E78.00 Pure hypercholesterolemia, unspecified; Z79.899 Other long term (current) drug therapy
CPT/HCPCS: 71045; 80053; 83605; 84484; 85025; 96374; J3010; J7050

== ENCOUNTER 2020-06-25 18:41 | Emergency (ER) | payer BC ==
[2020-06-25] MEDS ORDERED: Acetaminophen/Codeine 30-300mg Tablet ONE (20:04)
== END 2020-06-25 20:15 | disposition home or self-care (01) ==
LOC: NAV ERS 18:41
DX: R55 Syncope and collapse (principal); F44.5 Conversion disorder with seizures or convulsions; S16.1XXA Strain of muscle, fascia and tendon at neck level, initial encounter; S60.211A Contusion of right wrist, initial encounter; E78.5 Hyperlipidemia, unspecified; Z79.899 Other long term (current) drug therapy; W19.XXXA Unspecified fall, initial encounter
CPT/HCPCS: 70450; 72125

== ENCOUNTER 2020-06-26 15:33 | Emergency (ER) | payer BC ==
[2020-06-26] MEDS ORDERED: Fentanyl 100 MCG/2 ML VIAL ONE (16:54)
[2020-06-26] MEDS ORDERED: Sodium Chloride 0.9% 1,000 ML ONE (16:54)
[2020-06-26] MEDS ORDERED: Promethazine HCl 25 MG/ML VIAL ONE (16:54)
== END 2020-06-26 17:50 | disposition home or self-care (01) ==
LOC: NAV ERS 15:33
DX: G44.309 Post-traumatic headache, unspecified, not intractable (principal); F07.81 Postconcussional syndrome; E78.5 Hyperlipidemia, unspecified; G43.909 Migraine, unspecified, not intractable, without status migrainosus; Z79.899 Other long term (current) drug therapy
CPT/HCPCS: 70450; 96365; 96375; J2550; J3010; J7050

== ENCOUNTER 2020-09-13 13:16 | Emergency (ER) | payer BC | END 2020-09-13 14:02 | disposition home or self-care (01) | LOC: NAV ERS 13:16 | DX: R56.9 Unspecified convulsions (principal); R51.9 Headache, unspecified; E78.5 Hyperlipidemia, unspecified; Z79.899 Other long term (current) drug therapy | CPT/HCPCS: 99283 ==

== ENCOUNTER 2020-10-26 18:57 | Emergency (ER) | payer BC ==
[2020-10-26] MEDS ORDERED: Morphine 4 MG/ML VIAL ONE (20:12)
[2020-10-26] MEDS ORDERED: diphenhydrAMINE 12.5 MG/5 ML UDCUP ONE (20:12)
[2020-10-26] MEDS ORDERED: diphenhydrAMINE 50 MG/ML VIAL ONE (20:13)
[2020-10-26 20:37] LABS: #Basophils 0.1 thou/uL (0.0-0.2); #Eosinphils 0.1 thou/uL (0.0-0.7); #Lymphocytes 1.8 thou/uL (1.20-3.40); #Monocytes 0.3 thou/uL (0.11-0.59); #Neutrophils 3.1 thou/uL (1.40-6.50); %Eosinophils 1.8 % (0.0-10.0); %Lymphocytes 34.6 % (21.0-51.0); %Monocytes 5.1 % (0.0-10.0); %Neutrophils 57.4 % (42.0-75.0); Hemoglobin 13.8 g/dL (12.0-16.0); Mean Corpuscular HGB CONC 32.1 g/dL (32.0-36.0); Mean Corpuscular Hemoglobin 32.8 pg (27.0-31.0); Mean Platelet Volume 9.2 fL (7.4-10.4); Platelet Count 197 thou/uL (130-400); RBC Distribution Width 11.8 % (11.5-14.5); Red Blood Cell (RBC) Count 4.21 mill/uL (4.20-5.40); White Blood Cell (WBC) Count 5.3 thou/uL (4.8-10.8)
[2020-10-26 20:51] LABS: Bilirubin Negative (Negative); Blood, Urine Negative (Negative); Clarity Clear (Clear); Glucose, Urine (Dipstick) Negative (Negative); Ketone, Urine Negative (Negative); Leukocyte Trace (Negative); Nitrite Negative (Negative); Protein, Urine (Dipstick) Negative (Neg-Trace); Urobilinogen 0.2 mg/dL (Less than 2)
[2020-10-26 20:54] LABS: ALT (SGPT) 10 U/L (8-55); AST (SGOT) 18 U/L (5-34); Albumin 4.2 g/dL (3.5-5.0); Alkaline Phosphatase 57 U/L (40-110); Anion Gap 14 mmol/L (10-20); BUN (Urea Nitrogen) 12 mg/dL (7.0-18.7); Bilirubin, Total 0.4 mg/dL (0.2-1.2); Calc. Creatinine Clearance 0 mL/min (70-130); Carbon Dioxide 25 mmol/L (22-29); Chloride 105 mmol/L (98-107); Globulin 2.6 g/dL (2.4-3.5); Glucose 86 mg/dL (70-105); Potassium 3.7 mmol/L (3.5-5.1); Protein, Total 6.8 g/dL (6.0-8.3); Sodium 140 mmol/L (136-145)
[2020-10-26 20:54] LABS: Bacteria/HPF None Seen HPF (None Seen); RBC/HPF 0-3 HPF (0-3); Squamous Epithelial 0-3 HPF (0-3); WBC/HPF 0-3 HPF (0-3)
[2020-10-26] MEDS ORDERED: Ondansetron PF 4 MG/2 ML Vial ONE ×2 (21:54→23:56)
[2020-10-27] MEDS ORDERED: Morphine 4 MG/ML VIAL ONE (00:45)
== END 2020-10-27 01:10 | disposition home or self-care (01) ==
LOC: NAV ERS 18:57
DX: R10.2 Pelvic and perineal pain (principal); R11.0 Nausea; N89.8 Other specified noninflammatory disorders of vagina; E78.5 Hyperlipidemia, unspecified; Z86.16 Personal history of COVID-19
CPT/HCPCS: 74177; 80053; 81003; 81015; 85025; 87070; 87077; 87186; 87205; 87480; 87510; 87660; 96374; 96375; 96376; J1200; J2270; J2405; Q0163; Q9967

== ENCOUNTER 2020-11-04 17:36 | Emergency (ER) | payer BC ==
[2020-11-04 18:02] LABS: Bilirubin Negative (Negative); Blood, Urine Negative (Negative); Clarity Clear (Clear); Glucose, Urine (Dipstick) Negative (Negative); Ketone, Urine Negative (Negative); Leukocyte Negative (Negative); Nitrite Negative (Negative); Protein, Urine (Dipstick) Negative (Neg-Trace); Urobilinogen 0.2 mg/dL (Less than 2); pH, Urine 6.5 (5.0-9.0)
[2020-11-04] MEDS ORDERED: Sodium Chloride 0.9% 1,000 ML ONE (18:07)
[2020-11-04] MEDS ORDERED: Morphine 4 MG/ML VIAL ONE (18:07)
[2020-11-04] MEDS ORDERED: Ondansetron PF 4 MG/2 ML Vial ONE (18:07)
[2020-11-04 18:32] LABS: #Basophils 0.1 thou/uL (0.0-0.2); #Eosinphils 0.1 thou/uL (0.0-0.7); #Lymphocytes 1.7 thou/uL (1.20-3.40); #Monocytes 0.5 thou/uL (0.11-0.59); #Neutrophils 5.2 thou/uL (1.40-6.50); %Basophils 0.9 % (0.0-1.0); %Eosinophils 1.8 % (0.0-10.0); %Lymphocytes 22.5 % (21.0-51.0); %Monocytes 6.4 % (0.0-10.0); %Neutrophils 68.5 % (42.0-75.0); Mean Corpuscular HGB CONC 32.2 g/dL (32.0-36.0); Mean Corpuscular Hemoglobin 32.8 pg (27.0-31.0); Platelet Count 190 thou/uL (130-400); RBC Distribution Width 12.1 % (11.5-14.5); Red Blood Cell (RBC) Count 3.97 mill/uL (4.20-5.40); White Blood Cell (WBC) Count 7.6 thou/uL (4.8-10.8)
[2020-11-04 18:36] LABS: BHCG - Serum Negative (NEGATIVE); Pregs Control Bar Appear? YES (CONTROL BAR)
[2020-11-04 18:48] LABS: ALT (SGPT) 15 U/L (8-55); AST (SGOT) 21 U/L (5-34); Albumin 3.8 g/dL (3.5-5.0); Alkaline Phosphatase 56 U/L (40-110); Anion Gap 12 mmol/L (10-20); BUN (Urea Nitrogen) 9 mg/dL (7.0-18.7); Bilirubin, Total 0.3 mg/dL (0.2-1.2); Calc. Creatinine Clearance 0 mL/min (70-130); Calcium 8.8 mg/dL (7.8-10.44); Carbon Dioxide 26 mmol/L (22-29); Chloride 104 mmol/L (98-107); Globulin 2.5 g/dL (2.4-3.5); Glucose 94 mg/dL (70-105); Potassium 3.8 mmol/L (3.5-5.1); Protein, Total 6.3 g/dL (6.0-8.3); Sodium 138 mmol/L (136-145)
== END 2020-11-04 19:13 | disposition home or self-care (01) ==
LOC: NAV ERS 17:36
DX: E86.0 Dehydration (principal); R11.0 Nausea
CPT/HCPCS: 80053; 81003; 83605; 84703; 85025; 96374; 96375; J2270; J2405; J7050

== ENCOUNTER 2020-11-13 11:57 | Emergency (ER) | payer BC ==
[2020-11-13] MEDS ORDERED: Metoclopramide HCl 10 MG/2 ML VIAL ONE (13:30)
[2020-11-13] MEDS ORDERED: diphenhydrAMINE 50 MG/ML VIAL ONE (13:30)
[2020-11-13] MEDS ORDERED: Sodium Chloride 0.9% 1,000 ML ONE ×2 (13:30→17:11)
[2020-11-13 13:37] LABS: #Basophils 0.1 thou/uL (0.0-0.2); #Eosinphils 0.1 thou/uL (0.0-0.7); #Lymphocytes 1.7 thou/uL (1.20-3.40); #Monocytes 0.4 thou/uL (0.11-0.59); #Neutrophils 4.6 thou/uL (1.40-6.50); %Basophils 1.1 % (0.0-1.0); %Eosinophils 0.7 % (0.0-10.0); %Lymphocytes 24.6 % (21.0-51.0); %Monocytes 6.2 % (0.0-10.0); %Neutrophils 67.4 % (42.0-75.0); Hemoglobin 13.2 g/dL (12.0-16.0); Mean Corpuscular HGB CONC 32.2 g/dL (32.0-36.0); Mean Corpuscular Hemoglobin 32.9 pg (27.0-31.0); Mean Platelet Volume 9.3 fL (7.4-10.4); Platelet Count 236 thou/uL (130-400); RBC Distribution Width 12.5 % (11.5-14.5); Red Blood Cell (RBC) Count 4.02 mill/uL (4.20-5.40); White Blood Cell (WBC) Count 6.8 thou/uL (4.8-10.8)
[2020-11-13] MEDS ORDERED: Promethazine HCl 25 MG/ML VIAL ONE (13:44)
[2020-11-13 13:49] LABS: Bilirubin Negative (Negative); Blood, Urine Negative (Negative); Clarity Clear (Clear); Glucose, Urine (Dipstick) Negative (Negative); Ketone, Urine 80 mg/dL (Negative); Leukocyte Negative (Negative); Nitrite Negative (Negative); Protein, Urine (Dipstick) Negative (Neg-Trace); Urobilinogen 0.2 mg/dL (Less than 2)
[2020-11-13 13:52] LABS: ALT (SGPT) 14 U/L (8-55); Albumin 3.8 g/dL (3.5-5.0); Alkaline Phosphatase 53 U/L (40-110); Anion Gap 13 mmol/L (10-20); BUN (Urea Nitrogen) 9 mg/dL (7.0-18.7); Bilirubin, Total 0.5 mg/dL (0.2-1.2); Calc. Creatinine Clearance 0 mL/min (70-130); Calcium 8.9 mg/dL (7.8-10.44); Carbon Dioxide 22 mmol/L (22-29); Chloride 107 mmol/L (98-107); Globulin 2.7 g/dL (2.4-3.5); Glucose 85 mg/dL (70-105); Lipase 33 U/L (8-78); Potassium 4.2 mmol/L (3.5-5.1); Protein, Total 6.5 g/dL (6.0-8.3); Sodium 138 mmol/L (136-145)
[2020-11-13 13:56] LABS: AST (SGOT) 26 U/L (5-34)
[2020-11-13] MEDS ORDERED: Acetaminophen 500 MG TAB ONE (17:23)
== END 2020-11-13 17:55 | disposition home or self-care (01) ==
LOC: NAV ERS 11:57
DX: R10.84 Generalized abdominal pain (principal); R11.0 Nausea; E78.5 Hyperlipidemia, unspecified; G43.909 Migraine, unspecified, not intractable, without status migrainosus; Z79.899 Other long term (current) drug therapy
CPT/HCPCS: 80053; 81003; 83605; 83690; 85025; 96365; 96375; J1200; J2550; J2765; J7050

== ENCOUNTER 2020-11-24 20:27 | Observation (INO) | payer BC ==
[2020-11-24 21:13] LABS: #Eosinphils 0.1 thou/uL (0.0-0.7); #Lymphocytes 1.9 thou/uL (1.20-3.40); #Monocytes 0.3 thou/uL (0.11-0.59); #Neutrophils 3.6 thou/uL (1.40-6.50); %Basophils 0.7 % (0.0-1.0); %Eosinophils 1.5 % (0.0-10.0); %Lymphocytes 31.4 % (21.0-51.0); %Monocytes 5.6 % (0.0-10.0); %Neutrophils 60.7 % (42.0-75.0); Hemoglobin 14.1 g/dL (12.0-16.0); Mean Corpuscular HGB CONC 32.2 g/dL (32.0-36.0); Mean Corpuscular Hemoglobin 32.7 pg (27.0-31.0); Mean Platelet Volume 10.2 fL (7.4-10.4); Platelet Count 189 thou/uL (130-400); RBC Distribution Width 11.6 % (11.5-14.5); Red Blood Cell (RBC) Count 4.31 mill/uL (4.20-5.40); White Blood Cell (WBC) Count 5.9 thou/uL (4.8-10.8)
[2020-11-24 21:28] LABS: ALT (SGPT) 12 U/L (8-55); AST (SGOT) 18 U/L (5-34); Albumin 4.1 g/dL (3.5-5.0); Alkaline Phosphatase 55 U/L (40-110); Anion Gap 12 mmol/L (10-20); BUN (Urea Nitrogen) 16 mg/dL (7.0-18.7); Bilirubin, Total 0.4 mg/dL (0.2-1.2); Calc. Creatinine Clearance 0 mL/min (70-130); Calcium 9.4 mg/dL (7.8-10.44); Carbon Dioxide 27 mmol/L (22-29); Chloride 105 mmol/L (98-107); Globulin 2.7 g/dL (2.4-3.5); Glucose 91 mg/dL (70-105); Lipase 37 U/L (8-78); Potassium 3.9 mmol/L (3.5-5.1); Protein, Total 6.8 g/dL (6.0-8.3); Sodium 140 mmol/L (136-145)
[2020-11-24] MEDS ORDERED: Ondansetron PF 4 MG/2 ML Vial ONE (21:34)
[2020-11-24] MEDS ORDERED: Morphine 4 MG/ML VIAL ONE ×2 (21:34→23:06)
[2020-11-25 00:12] LABS: Bilirubin Negative (Negative); Blood, Urine Negative (Negative); Clarity Clear (Clear); Glucose, Urine (Dipstick) Negative (Negative); Ketone, Urine 15 mg/dL (Negative); Leukocyte Negative (Negative); Nitrite Negative (Negative); Protein, Urine (Dipstick) Negative (Neg-Trace); Urobilinogen 0.2 mg/dL (Less than 2)
[2020-11-25] MEDS ORDERED: Sodium Chloride 0.9% 1,000 ML IV SCH (00:15)
[2020-11-25] MEDS ORDERED: Ondansetron ODT 4 MG TAB SL PRN (00:15)
[2020-11-25] MEDS ORDERED: Acetaminophen 325 MG TAB PO PRN ×2 (00:15→01:16)
[2020-11-25] MEDS ORDERED: Ondansetron PF 4 MG/2 ML Vial IVP PRN (00:15)
[2020-11-25] MEDS ORDERED: Sodium Chloride 0.9% 10 ML ONE (00:16)
[2020-11-25] MEDS ORDERED: Dicyclomine 20 MG TAB PO PRN ×2 (00:23→01:17)
[2020-11-25] MEDS ORDERED: Morphine 4 MG/ML VIAL SLOW IVP PRN ×2 (00:23→01:33)
[2020-11-25] MEDS ORDERED: clonazePAM 1 MG TAB PO PRN (01:05)
[2020-11-25] MEDS ORDERED: Ondansetron ODT 4 MG TAB PO PRN (01:06)
[2020-11-25] MEDS ORDERED: Promethazine HCl 12.5 MG SUPP PR PRN (01:14)
[2020-11-25 02:14] LABS: SARS-CoV-2 NAA Rapid Test Not Detected (NotDetected)
[2020-11-25] MEDS: Loratadine 10 MG TAB PO SCH (08:15)
[2020-11-25] MEDS: Morphine 4 MG/ML VIAL SLOW IVP PRN ×3 (09:22→23:45)
[2020-11-25] MEDS: ADDERALL 10 MG PO SCH (09:22)
[2020-11-25] MEDS ORDERED: diphenhydrAMINE 25 MG CAP PO PRN (10:32)
[2020-11-25] MEDS: Promethazine 25 MG TAB PO PRN ×3 (11:01→23:45)
[2020-11-25] MEDS: Sodium Chloride 0.9% 1,000 ML IV SCH ×3 (13:11→22:45)
[2020-11-25 15:19] VITALS: BMI 16.4
[2020-11-26] MEDS: Loratadine 10 MG TAB PO SCH (09:19)
[2020-11-26] MEDS: ADDERALL 10 MG PO SCH (09:20)
[2020-11-26] MEDS: Promethazine 25 MG TAB PO PRN ×2 (09:20→16:04)
[2020-11-26] MEDS: Morphine 4 MG/ML VIAL SLOW IVP PRN ×2 (09:21→16:04)
[2020-11-26] MEDS: Sodium Chloride 0.9% 1,000 ML IV SCH (12:15)
[2020-11-26 16:38] VITALS: BP 124/77; TEMP 98.3
== END 2020-11-26 17:45 | disposition home or self-care (01) ==
LOC: NAV ERS 20:27 → NAV ACUTE 23:14
PROVIDERS: ADMIT Family Medicine; ATTEND Family Medicine
DX: R10.31 Right lower quadrant pain (principal); R10.13 Epigastric pain; R11.0 Nausea; R63.4 Abnormal weight loss; R13.14 Dysphagia, pharyngoesophageal phase; R53.1 Weakness; J45.909 Unspecified asthma, uncomplicated; G89.29 Other chronic pain; G40.909 Epilepsy, unspecified, not intractable, without status epilepticus; G43.909 Migraine, unspecified, not intractable, without status migrainosus; I10 Essential (primary) hypertension; N28.1 Cyst of kidney, acquired; Z68.1 Body mass index [BMI] 19.9 or less, adult; Z20.822 Contact with and (suspected) exposure to COVID-19; Z88.1 Allergy status to other antibiotic agents; Z88.2 Allergy status to sulfonamides; Z88.5 Allergy status to narcotic agent; Z88.8 Allergy status to other drugs, medicaments and biological substances; Z90.49 Acquired absence of other specified parts of digestive tract; Z79.899 Other long term (current) drug therapy; Z90.710 Acquired absence of both cervix and uterus; Z90.721 Acquired absence of ovaries, unilateral
CPT/HCPCS: 36415; 74177; 80053; 81003; 83605; 83690; 83735; 84484; 85025; 96374; 96375; 96376; J2270; J2405; J7050; Q0162; Q0163; Q0169; U0002

== ENCOUNTER 2021-06-24 06:56 | Emergency (ER) | payer BC ==
[2021-06-24 08:56] LABS: #Basophils 0.1 thou/uL (0.0-0.2); #Lymphocytes 1.5 thou/uL (1.20-3.40); #Monocytes 0.2 thou/uL (0.11-0.59); #Neutrophils 1.8 thou/uL (1.40-6.50); %Basophils 1.4 % (0.0-1.0); %Eosinophils 1.4 % (0.0-10.0); %Lymphocytes 41.9 % (21.0-51.0); %Monocytes 5.6 % (0.0-10.0); %Neutrophils 49.7 % (42.0-75.0); Mean Corpuscular HGB CONC 33.3 g/dL (32.0-36.0); Mean Corpuscular Hemoglobin 33.2 pg (27.0-31.0); Mean Corpuscular Volume 99.6 fL (78.0-98.0); Mean Platelet Volume 6.7 fL (7.4-10.4); Platelet Count 117 thou/uL (130-400); RBC Distribution Width 11.5 % (11.5-14.5); Red Blood Cell (RBC) Count 4.81 mill/uL (4.20-5.40); White Blood Cell (WBC) Count 3.6 thou/uL (4.8-10.8)
[2021-06-24 09:08] LABS: ALT (SGPT) 9 U/L (8-55); AST (SGOT) 19 U/L (5-34); Albumin 5.1 g/dL (3.5-5.0); Alkaline Phosphatase 67 U/L (40-110); Anion Gap 19 mmol/L (10-20); BUN (Urea Nitrogen) 10 mg/dL (7.0-18.7); Bilirubin, Total 0.6 mg/dL (0.2-1.2); Calc. Creatinine Clearance 0 mL/min (70-130); Calcium 9.6 mg/dL (7.8-10.44); Carbon Dioxide 22 mmol/L (22-29); Chloride 105 mmol/L (98-107); Globulin 3.1 g/dL (2.4-3.5); Glucose 77 mg/dL (70-105); Potassium 3.5 mmol/L (3.5-5.1); Protein, Total 8.2 g/dL (6.0-8.3); Sodium 142 mmol/L (136-145)
[2021-06-24] MEDS ORDERED: Sodium Chloride 0.9% 1,000 ML ONE (09:36)
[2021-06-24 09:56] LABS: Bilirubin Negative (Negative); Blood, Urine Negative (Negative); Clarity Clear (Clear); Glucose, Urine (Dipstick) Negative (Negative); Ketone, Urine 15 mg/dL (Negative); Leukocyte Negative (Negative); Nitrite Negative (Negative); Protein, Urine (Dipstick) Negative (Neg-Trace); Urobilinogen 0.2 mg/dL (Less than 2)
[2021-06-24 10:05] LABS: Amphetamine Detected (NotDetected); Barbiturates Screen Not Detected (NotDetected); Benzodiazepine Screen Not Detected (NotDetected); Cocaine Metabolite Screen Not Detected (NotDetected); Medtox Control Line Valid? VALID (VALID); Methadone Not Detected (NotDetected); Methamphetamine Not Detected (NotDetected); Opiate Screen Not Detected (NotDetected); Oxycodone Screen Not Detected (NotDetected); Phencyclidine (PCP) Not Detected (NotDetected); THC/Cannabinoid Screen Not Detected (NotDetected); Tricyclic Screen Not Detected (NotDetected)
== END 2021-06-24 10:38 | disposition home or self-care (01) ==
LOC: NAV ERS 06:56
DX: K52.9 Noninfective gastroenteritis and colitis, unspecified (principal); R55 Syncope and collapse; G89.29 Other chronic pain; E78.5 Hyperlipidemia, unspecified; Z79.899 Other long term (current) drug therapy
CPT/HCPCS: 80053; 80306; 81003; 82274; 83630; 84443; 84484; 85025; 87045; 87046; 87324; 87328; 87329; 87427; 87449; 87493; 93005; J7050

== ENCOUNTER 2021-08-27 15:51 | Emergency (ER) | payer BC ==
[2021-08-27] MEDS ORDERED: Ondansetron PF 4 MG/2 ML Vial ONE (16:58)
[2021-08-27] MEDS ORDERED: Sodium Chloride 0.9% 1,000 ML ONE ×2 (16:58→18:59)
[2021-08-27] MEDS ORDERED: Dicyclomine 20 MG TAB ONE (17:08)
[2021-08-27 17:11] LABS: #Basophils 0.1 thou/uL (0.0-0.2); #Eosinphils 0.1 thou/uL (0.0-0.7); #Lymphocytes 1.5 thou/uL (1.20-3.40); #Monocytes 0.3 thou/uL (0.11-0.59); #Neutrophils 4.2 thou/uL (1.40-6.50); %Eosinophils 1.1 % (0.0-10.0); %Lymphocytes 23.8 % (21.0-51.0); %Monocytes 4.8 % (0.0-10.0); %Neutrophils 69.3 % (42.0-75.0); Hemoglobin 13.6 g/dL (12.0-16.0); Mean Corpuscular HGB CONC 31.9 g/dL (32.0-36.0); Mean Corpuscular Hemoglobin 32.8 pg (27.0-31.0); Mean Platelet Volume 8.6 fL (7.4-10.4); Platelet Count 236 thou/uL (130-400); RBC Distribution Width 11.3 % (11.5-14.5); Red Blood Cell (RBC) Count 4.15 mill/uL (4.20-5.40); White Blood Cell (WBC) Count 6.1 thou/uL (4.8-10.8)
[2021-08-27 17:19] LABS: Bilirubin Negative (Negative); Blood, Urine Negative (Negative); Clarity SL HAZY (Clear); Glucose, Urine (Dipstick) Negative (Negative); Ketone, Urine 80 mg/dL (Negative); Leukocyte Negative (Negative); Nitrite Negative (Negative); Protein, Urine (Dipstick) Negative (Neg-Trace); Specific Gravity, Urine 1.028 (1.002-1.036); Urobilinogen 0.2 mg/dL (Less than 2); pH, Urine 5.5 (5.0-9.0)
[2021-08-27 17:26] LABS: ALT (SGPT) 10 U/L (8-55); AST (SGOT) 18 U/L (5-34); Albumin 4.4 g/dL (3.5-5.0); Alkaline Phosphatase 53 U/L (40-110); Anion Gap 16 mmol/L (10-20); BUN (Urea Nitrogen) 8 mg/dL (7.0-18.7); Bilirubin, Total 0.4 mg/dL (0.2-1.2); Calc. Creatinine Clearance 0 mL/min (70-130); Carbon Dioxide 24 mmol/L (22-29); Chloride 105 mmol/L (98-107); Globulin 2.4 g/dL (2.4-3.5); Glucose 88 mg/dL (70-105); Lipase 35 U/L (8-78); Potassium 3.7 mmol/L (3.5-5.1); Protein, Total 6.8 g/dL (6.0-8.3); Sodium 141 mmol/L (136-145)
[2021-08-27] MEDS ORDERED: Pantoprazole 40 MG VIAL ONE (18:59)
[2021-08-27] MEDS ORDERED: Fentanyl 100 MCG/2 ML VIAL ONE (18:59)
== END 2021-08-27 20:25 | disposition home or self-care (01) ==
LOC: NAV ERS 15:51
DX: K29.01 Acute gastritis with bleeding (principal); E86.9 Volume depletion, unspecified; E78.5 Hyperlipidemia, unspecified; G43.909 Migraine, unspecified, not intractable, without status migrainosus; Z79.899 Other long term (current) drug therapy
CPT/HCPCS: 80053; 81003; 82274; 83690; 85025; 96361; 96374; 96375; C9113; J2405; J3010; J7050

== ENCOUNTER 2021-09-29 13:32 | Emergency (ER) | payer BC ==
[2021-09-29 14:10] LABS: Bilirubin Negative (Negative); Blood, Urine Trace (Negative); Clarity Clear (Clear); Glucose, Urine (Dipstick) Negative (Negative); Ketone, Urine Negative (Negative); Leukocyte Negative (Negative); Nitrite Negative (Negative); Protein, Urine (Dipstick) Trace mg/dL (Neg-Trace); Specific Gravity, Urine 1.028 (1.002-1.036); Urobilinogen 0.2 mg/dL (Less than 2)
[2021-09-29 14:19] LABS: Bacteria/HPF Rare-Few HPF (None Seen); RBC/HPF 0-3 HPF (0-3)
[2021-09-29 14:20] LABS: Mucous/LPF 2+ LPF (<2+)
[2021-09-29] MEDS ORDERED: Pantoprazole 40 MG VIAL ONE (14:32)
[2021-09-29] MEDS ORDERED: Sterile Water 10 ML ONE (14:32)
[2021-09-29] MEDS ORDERED: Sodium Chloride 0.9% 1,000 ML ONE ×2 (14:32→16:14)
[2021-09-29] MEDS ORDERED: Ondansetron PF 4 MG/2 ML Vial ONE (14:32)
[2021-09-29 14:48] LABS: #Basophils 0.1 thou/uL (0.0-0.2); #Eosinphils 0.1 thou/uL (0.0-0.7); #Lymphocytes 1.5 thou/uL (1.20-3.40); #Monocytes 0.3 thou/uL (0.11-0.59); #Neutrophils 4.5 thou/uL (1.40-6.50); %Basophils 0.9 % (0.0-1.0); %Eosinophils 1.3 % (0.0-10.0); %Lymphocytes 23.1 % (21.0-51.0); %Monocytes 4.5 % (0.0-10.0); %Neutrophils 70.2 % (42.0-75.0); Hemoglobin 12.9 g/dL (12.0-16.0); Mean Corpuscular HGB CONC 31.7 g/dL (32.0-36.0); Mean Corpuscular Hemoglobin 32.6 pg (27.0-31.0); Mean Platelet Volume 8.4 fL (7.4-10.4); Platelet Count 198 thou/uL (130-400); RBC Distribution Width 11.2 % (11.5-14.5); Red Blood Cell (RBC) Count 3.94 mill/uL (4.20-5.40); White Blood Cell (WBC) Count 6.4 thou/uL (4.8-10.8)
[2021-09-29 15:02] LABS: ALT (SGPT) 11 U/L (8-55); AST (SGOT) 17 U/L (5-34); Albumin 4.5 g/dL (3.5-5.0); Alkaline Phosphatase 57 U/L (40-110); Anion Gap 14 mmol/L (10-20); BUN (Urea Nitrogen) 14 mg/dL (7.0-18.7); Bilirubin, Total 0.4 mg/dL (0.2-1.2); Calc. Creatinine Clearance 0 mL/min (70-130); Calcium 9.1 mg/dL (7.8-10.44); Carbon Dioxide 27 mmol/L (22-29); Chloride 103 mmol/L (98-107); Estimated GFR 97; Globulin 2.1 g/dL (2.4-3.5); Glucose 92 mg/dL (70-105); Lipase 53 U/L (8-78); Potassium 3.7 mmol/L (3.5-5.1); Protein, Total 6.6 g/dL (6.0-8.3); Sodium 140 mmol/L (136-145)
[2021-09-29] MEDS ORDERED: Fentanyl 100 MCG/2 ML VIAL ONE ×2 (15:20→15:52)
[2021-09-29 18:32] LABS: SARS-CoV-2 NAA Rapid Test Not Detected (NotDetected)
== END 2021-09-29 18:57 | disposition short-term general hospital (02) ==
LOC: NAV ERS 13:32
DX: K35.80 Unspecified acute appendicitis (principal); Z20.822 Contact with and (suspected) exposure to COVID-19; E78.5 Hyperlipidemia, unspecified; G43.909 Migraine, unspecified, not intractable, without status migrainosus; Z79.899 Other long term (current) drug therapy
CPT/HCPCS: 74177; 80053; 81003; 81015; 83690; 85025; 87086; 96361; 96374; 96375; 96376; C9113; J2405; J3010; J7050; Q9967; U0002

== ENCOUNTER 2021-10-05 10:19 | Emergency (ER) | payer BC ==
[2021-10-05] MEDS ORDERED: Ondansetron PF 4 MG/2 ML Vial ONE (10:56)
[2021-10-05] MEDS ORDERED: Morphine 4 MG/ML VIAL ONE (10:57)
[2021-10-05 11:01] LABS: #Basophils 0.1 thou/uL (0.0-0.2); #Eosinphils 0.3 thou/uL (0.0-0.7); #Lymphocytes 1.8 thou/uL (1.20-3.40); #Monocytes 0.3 thou/uL (0.11-0.59); #Neutrophils 3.6 thou/uL (1.40-6.50); %Basophils 0.9 % (0.0-1.0); %Eosinophils 4.4 % (0.0-10.0); %Lymphocytes 29.5 % (21.0-51.0); %Monocytes 4.6 % (0.0-10.0); %Neutrophils 60.6 % (42.0-75.0); Hemoglobin 14.5 g/dL (12.0-16.0); Mean Corpuscular HGB CONC 31.3 g/dL (32.0-36.0); Mean Corpuscular Hemoglobin 32.3 pg (27.0-31.0); Mean Platelet Volume 9.1 fL (7.4-10.4); Platelet Count 194 thou/uL (130-400); RBC Distribution Width 11.1 % (11.5-14.5); Red Blood Cell (RBC) Count 4.48 mill/uL (4.20-5.40); White Blood Cell (WBC) Count 5.9 thou/uL (4.8-10.8)
[2021-10-05] MEDS ORDERED: Famotidine/PF 20 mg/2ml Vial ONE (11:05)
[2021-10-05 11:17] LABS: ALT (SGPT) 7 U/L (8-55); AST (SGOT) 15 U/L (5-34); Albumin 4.4 g/dL (3.5-5.0); Alkaline Phosphatase 52 U/L (40-110); Anion Gap 16 mmol/L (10-20); BUN (Urea Nitrogen) 12 mg/dL (7.0-18.7); Bilirubin, Total 0.3 mg/dL (0.2-1.2); Calc. Creatinine Clearance 0 mL/min (70-130); Calcium 9.5 mg/dL (7.8-10.44); Carbon Dioxide 21 mmol/L (22-29); Chloride 105 mmol/L (98-107); Estimated GFR 98; Globulin 2.6 g/dL (2.4-3.5); Glucose 77 mg/dL (70-105); Lipase 53 U/L (8-78); Sodium 138 mmol/L (136-145)
[2021-10-05 12:24] LABS: Bilirubin Negative (Negative); Blood, Urine Negative (Negative); Clarity Clear (Clear); Glucose, Urine (Dipstick) Negative (Negative); Ketone, Urine Negative (Negative); Leukocyte Negative (Negative); Nitrite Negative (Negative); Protein, Urine (Dipstick) Negative (Neg-Trace); Urobilinogen 0.2 mg/dL (Less than 2); pH, Urine 5.5 (5.0-9.0)
[2021-10-05] MEDS ORDERED: Docusate 100 MG CAP ONE (13:32)
[2021-10-05] MEDS ORDERED: Bisacodyl 10 MG SUPP ONE (13:32)
== END 2021-10-05 13:41 | disposition home or self-care (01) ==
LOC: NAV ERS 10:19
DX: G89.18 Other acute postprocedural pain (principal); R10.84 Generalized abdominal pain; K59.00 Constipation, unspecified; G43.909 Migraine, unspecified, not intractable, without status migrainosus; E78.5 Hyperlipidemia, unspecified; Z79.899 Other long term (current) drug therapy
CPT/HCPCS: 71046; 74177; 80053; 81003; 83690; 85025; 96374; 96375; J2270; J2405; Q9967; S0028

== ENCOUNTER 2021-10-08 18:48 | Emergency (ER) | payer BC ==
[2021-10-08] MEDS ORDERED: methylPREDNISolone Acetate 40 mg/ml Vial ONE (19:54)
== END 2021-10-08 20:02 | disposition home or self-care (01) ==
LOC: NAV ERS 18:48
DX: L25.9 Unspecified contact dermatitis, unspecified cause (principal); E78.5 Hyperlipidemia, unspecified; Z79.899 Other long term (current) drug therapy
CPT/HCPCS: J2920

== ENCOUNTER 2021-11-25 17:56 | Emergency (ER) | payer BC | END 2021-11-25 18:40 | disposition home or self-care (01) | LOC: NAV ERS 17:56 | DX: R10.30 Lower abdominal pain, unspecified (principal) | CPT/HCPCS: 99281 ==

== ENCOUNTER 2021-12-01 15:27 | Emergency (ER) | payer BC ==
[2021-12-01] MEDS ORDERED: Sodium Chloride 0.9% 1,000 ML ONE (16:17)
[2021-12-01 16:38] LABS: #Basophils 0.1 thou/uL (0.0-0.2); #Eosinphils 0.1 thou/uL (0.0-0.7); #Lymphocytes 1.5 thou/uL (1.20-3.40); #Monocytes 0.4 thou/uL (0.11-0.59); %Basophils 0.7 % (0.0-1.0); %Eosinophils 0.9 % (0.0-10.0); %Lymphocytes 16.9 % (21.0-51.0); %Monocytes 4.4 % (0.0-10.0); %Neutrophils 77.1 % (42.0-75.0); Mean Corpuscular HGB CONC 32.1 g/dL (32.0-36.0); Mean Corpuscular Hemoglobin 32.2 pg (27.0-31.0); Platelet Count 205 thou/uL (130-400); RBC Distribution Width 11.2 % (11.5-14.5); Red Blood Cell (RBC) Count 4.03 mill/uL (4.20-5.40); White Blood Cell (WBC) Count 9.1 thou/uL (4.8-10.8)
[2021-12-01 16:42] LABS: Bilirubin Negative (Negative); Blood, Urine Negative (Negative); Glucose, Urine (Dipstick) Negative (Negative); Ketone, Urine Negative (Negative); Leukocyte Negative (Negative); Nitrite Negative (Negative); Protein, Urine (Dipstick) 30 mg/dL (Neg-Trace); Urobilinogen 0.2 mg/dL (Less than 2); pH, Urine 5.5 (5.0-9.0)
[2021-12-01 16:46] LABS: Clarity SL HAZY (Clear)
[2021-12-01 17:03] LABS: Bacteria/HPF 2+ HPF (None Seen); Mucous/LPF 1+ LPF (<2+); RBC/HPF None Seen HPF (0-3); Transitional Epithelial 0-3 HPF (None Seen); WBC/HPF 0-3 HPF (0-3)
[2021-12-01 17:14] LABS: ALT (SGPT) 11 U/L (8-55); AST (SGOT) 18 U/L (5-34); Albumin 4.1 g/dL (3.5-5.0); Alkaline Phosphatase 46 U/L (40-110); Anion Gap 16 mmol/L (10-20); BUN (Urea Nitrogen) 9 mg/dL (7.0-18.7); Bilirubin, Total 0.5 mg/dL (0.2-1.2); Calc. Creatinine Clearance 0 mL/min (70-130); Calcium 8.9 mg/dL (7.8-10.44); Carbon Dioxide 19 mmol/L (22-29); Chloride 109 mmol/L (98-107); Estimated GFR 95; Globulin 2.3 g/dL (2.4-3.5); Glucose 91 mg/dL (70-105); Lipase 60 U/L (8-78); Potassium 3.8 mmol/L (3.5-5.1); Protein, Total 6.4 g/dL (6.0-8.3); Sodium 140 mmol/L (136-145)
[2021-12-01] MEDS ORDERED: Promethazine 25 MG TAB ONE (17:42)
== END 2021-12-01 18:05 | disposition home or self-care (01) ==
LOC: NAV ERS 15:27
DX: E86.0 Dehydration (principal); E78.5 Hyperlipidemia, unspecified; Z79.899 Other long term (current) drug therapy
CPT/HCPCS: 80053; 81003; 81015; 83605; 83690; 85025; 87324; 87449; 87493; 93005; 96360; J7050; Q0169

== ENCOUNTER 2022-02-24 13:48 | Emergency (ER) | payer BC ==
[2022-02-24] MEDS ORDERED: Ondansetron ODT 4 MG TAB ONE (15:21)
[2022-02-24] MEDS ORDERED: Ibuprofen 800 MG TAB ONE (15:21)
[2022-02-24] MEDS ORDERED: Acetaminophen/Codeine 30-300mg Tablet ONE (15:28)
== END 2022-02-24 16:48 | disposition home or self-care (01) ==
LOC: NAV ERS 13:48
DX: S70.12XA Contusion of left thigh, initial encounter (principal); S70.02XA Contusion of left hip, initial encounter; E78.5 Hyperlipidemia, unspecified; G43.909 Migraine, unspecified, not intractable, without status migrainosus; Z79.899 Other long term (current) drug therapy; W07.XXXA Fall from chair, initial encounter
CPT/HCPCS: Q0162

== ENCOUNTER 2022-04-21 15:24 | Emergency (ER) | payer BC ==
[2022-04-21] MEDS ORDERED: Acetaminophen 325 MG TAB ONE (16:42)
[2022-04-21] MEDS ORDERED: Sodium Chloride 0.9% 1,000 ML ONE (16:42)
[2022-04-21 16:53] LABS: #Basophils 0.1 thou/uL (0.0-0.2); #Eosinphils 0.2 thou/uL (0.0-0.7); #Lymphocytes 2.6 thou/uL (1.20-3.40); #Monocytes 0.5 thou/uL (0.11-0.59); #Neutrophils 7.5 thou/uL (1.40-6.50); %Basophils 0.8 % (0.0-1.0); %Lymphocytes 23.6 % (21.0-51.0); %Monocytes 4.9 % (0.0-10.0); %Neutrophils 68.7 % (42.0-75.0); Hemoglobin 15.8 g/dL (12.0-16.0); Mean Corpuscular HGB CONC 32.6 g/dL (32.0-36.0); Mean Corpuscular Hemoglobin 33.7 pg (27.0-31.0); Mean Platelet Volume 8.5 fL (7.4-10.4); Platelet Count 192 10x3/uL (130-400); RBC Distribution Width 11.8 % (11.5-14.5); White Blood Cell (WBC) Count 10.9 10x3/uL (4.8-10.8)
[2022-04-21 17:34] LABS: ALT (SGPT) 13 U/L (8-55); AST (SGOT) 16 U/L (5-34); Albumin 4.1 g/dL (3.5-5.0); Alkaline Phosphatase 40 U/L (40-110); Anion Gap 15 mmol/L (10-20); BUN (Urea Nitrogen) 12 mg/dL (7.0-18.7); Bilirubin, Total 0.3 mg/dL (0.2-1.2); Calc. Creatinine Clearance 0 mL/min (70-130); Calcium 8.7 mg/dL (7.8-10.44); Carbon Dioxide 20 mmol/L (22-29); Chloride 107 mmol/L (98-107); Estimated GFR 102; Globulin 2.2 g/dL (2.4-3.5); Glucose 91 mg/dL (70-105); Lipase 29 U/L (8-78); Potassium 3.7 mmol/L (3.5-5.1); Protein, Total 6.3 g/dL (6.0-8.3); Sodium 138 mmol/L (136-145)
[2022-04-21 18:02] LABS: Bilirubin Negative (Negative); Blood, Urine Negative (Negative); Clarity Clear (Clear); Glucose, Urine (Dipstick) Negative (Negative); Ketone, Urine Negative (Negative); Leukocyte Negative (Negative); Nitrite Negative (Negative); Protein, Urine (Dipstick) Negative (Neg-Trace); Urobilinogen 0.2 mg/dL (Less than 2); pH, Urine 5.5 (5.0-9.0)
[2022-04-21] MEDS ORDERED: Dexamethasone 20 MG/5 ML VIAL ONE (18:18)
[2022-04-22 06:15] LABS: MONO NEGATIVE CONTROL ZONE White (Negative) (White); MONO POSITIVE CONTROL Pink Line (Positive) (PINK/RED); Mononucleosis NEGATIVE (NEGATIVE)
== END 2022-04-21 18:30 | disposition home or self-care (01) ==
LOC: NAV ERS 15:24
DX: J06.9 Acute upper respiratory infection, unspecified (principal); E78.5 Hyperlipidemia, unspecified; Z79.899 Other long term (current) drug therapy
CPT/HCPCS: 71046; 80053; 81003; 83690; 85025; 86308; 87081; 87430; 87804; 96374; J1100; J7050; U0003; U0005

== ENCOUNTER 2022-11-03 09:17 | Emergency (ER) | payer BC ==
[2022-11-03] MEDS ORDERED: Ondansetron PF 4 MG/2 ML Vial ONE (09:26)
[2022-11-03] MEDS ORDERED: diphenhydrAMINE 50 MG/ML VIAL ONE (09:42)
[2022-11-03] MEDS ORDERED: Prochlorperazine 10 MG/2 ML VIAL ONE (09:42)
[2022-11-03] MEDS ORDERED: Sodium Chloride 0.9% 1,000 ML ONE (09:42)
[2022-11-03 10:46] LABS: %Eosinophils 0.8 % (0.0-10.0); %Lymphocytes 34.5 % (21.0-51.0); %Monocytes 7.5 % (0.0-10.0); %Neutrophils 55.9 % (42.0-75.0); Hematocrit 34.3 % (36.0-47.0); Hemoglobin 11.3 g/dL (12.0-16.0); Mean Corpuscular HGB CONC 32.9 g/dL (32.0-36.0); Mean Corpuscular Hemoglobin 31.7 pg (27.0-31.0); Mean Corpuscular Volume 96.4 fl (78.0-98.0); Mean Platelet Volume 8.2 fL (7.4-10.4); Platelet Count 133 10x3/uL (130-400); RBC Distribution Width 11.9 % (11.5-14.5); Red Blood Cell (RBC) Count 3.56 mill/uL (4.20-5.40); White Blood Cell (WBC) Count 3.2 10x3/uL (4.8-10.8)
[2022-11-03 10:47] LABS: #Lymphocytes 1.1 thou/uL (1.20-3.40); #Monocytes 0.2 thou/uL (0.11-0.59); #Neutrophils 1.8 thou/uL (1.40-6.50); %Basophils 1.3 % (0.0-1.0)
[2022-11-03 11:06] LABS: Potassium 3.2 mmol/L (3.5-5.1); Sodium 141 mmol/L (136-145)
[2022-11-03 11:07] LABS: Anion Gap 11 mmol/L (10-20); BUN (Urea Nitrogen) 12 mg/dL (7.0-18.7); Bilirubin, Total 0.4 mg/dL (0.2-1.2); Calc. Creatinine Clearance 0 mL/min (70-130); Calcium 7.8 mg/dL (7.6-10.4); Carbon Dioxide 21 mmol/L (22-29); Chloride 112 mmol/L (98-107); Estimated GFR 110; Glucose 86 mg/dL (70-105)
[2022-11-03 11:08] LABS: Albumin 3.4 g/dL (3.5-5.0); Protein, Total 5.3 g/dL (6.0-8.3)
[2022-11-03 11:09] LABS: Bilirubin Negative (Negative); Blood, Urine Trace (Negative); Clarity Clear (Clear); Glucose, Urine (Dipstick) Negative (Negative); Ketone, Urine Negative (Negative); Leukocyte Negative (Negative); Nitrite Negative (Negative); Protein, Urine (Dipstick) Negative (Neg-Trace); Specific Gravity, Urine 1.015 (1.005-1.030); Urobilinogen 0.2 mg/dL (Less than 2)
[2022-11-03 11:12] LABS: ALT (SGPT) 7 U/L (8-55); AST (SGOT) 14 U/L (5-34); Alkaline Phosphatase 42 U/L (40-110)
[2022-11-03 11:13] LABS: Globulin 1.9 g/dL (2.4-3.5)
[2022-11-03 11:25] LABS: Bacteria/HPF Rare-Few HPF (None Seen); CAUTI Indications for Culture < 2yrs of age; RBC/HPF 0-3 HPF (0-3); WBC/HPF None Seen HPF (0-3)
== END 2022-11-03 11:47 | disposition home or self-care (01) ==
LOC: NAV ERS 09:17
DX: G40.909 Epilepsy, unspecified, not intractable, without status epilepticus (principal); Z86.16 Personal history of COVID-19; Z79.899 Other long term (current) drug therapy
CPT/HCPCS: 36415; 80053; 81001; 85025; 96374; 96375; J0780; J1200; J2405; J7050

== ENCOUNTER 2023-03-21 10:56 | Emergency (ER) | payer BC ==
[2023-03-21] MEDS ORDERED: Ondansetron ODT 4 MG TAB ONE (11:21)
== END 2023-03-21 12:20 | disposition home or self-care (01) ==
LOC: NAV ERS 10:56
DX: J10.1 Influenza due to other identified influenza virus with other respiratory manifestations (principal); E78.5 Hyperlipidemia, unspecified; Z79.899 Other long term (current) drug therapy
CPT/HCPCS: 71046; Q0162

== ENCOUNTER 2023-05-05 09:12 | Emergency (ER) | payer BC ==
[2023-05-05 09:48] LABS: #Basophils 0.1 thou/uL (0.0-0.2); #Eosinphils 0.1 thou/uL (0.0-0.7); #Monocytes 0.2 thou/uL (0.11-0.59); %Basophils 1.4 % (0.0-1.0); %Eosinophils 2.8 % (0.0-10.0); %Monocytes 4.2 % (0.0-10.0); %Neutrophils 68.6 % (42.0-75.0); Hematocrit 38.8 % (36.0-47.0); Hemoglobin 13.3 g/dL (12.0-16.0); Mean Corpuscular HGB CONC 34.3 g/dL (32.0-36.0); Mean Corpuscular Hemoglobin 33.4 pg (27.0-31.0); Mean Corpuscular Volume 97.5 fl (78.0-98.0); Mean Platelet Volume 9.5 fL (7.4-10.4); Platelet Count 180 10x3/uL (130-400); RBC Distribution Width 10.9 % (11.5-14.5); Red Blood Cell (RBC) Count 3.98 mill/uL (4.20-5.40); White Blood Cell (WBC) Count 4.4 10x3/uL (4.8-10.8)
[2023-05-05] MEDS ORDERED: Aspirin Chewable 81 MG TAB ONE (09:49)
[2023-05-05 10:06] LABS: ALT (SGPT) 10 U/L (8-55); AST (SGOT) 17 U/L (5-34); Albumin 4.2 g/dL (3.5-5.0); Alkaline Phosphatase 48 U/L (40-110); Anion Gap 12 mmol/L (10-20); BUN (Urea Nitrogen) 11 mg/dL (7.0-18.7); Bilirubin, Total 0.4 mg/dL (0.2-1.2); Calc. Creatinine Clearance 0 mL/min (70-130); Calcium 8.8 mg/dL (7.8-10.44); Carbon Dioxide 25 mmol/L (22-29); Chloride 104 mmol/L (98-107); Estimated GFR 109; Globulin 2.8 g/dL (2.4-3.5); Glucose 95 mg/dL (70-105); Potassium 3.6 mmol/L (3.5-5.1); Sodium 137 mmol/L (136-145)
[2023-05-05 10:07] LABS: Troponin I Less than 0.010 ng/mL (< 0.028)
[2023-05-05] MEDS ORDERED: Adenosine 6 mg (2 mL) VIAL ONE (10:21)
[2023-05-05] MEDS ORDERED: Amiodarone 150 MG/3 ML VIAL ONE (10:41)
[2023-05-05] MEDS ORDERED: Morphine 2 MG/ML VIAL ONE (10:44)
[2023-05-05] MEDS ORDERED: Ondansetron PF 4 MG/2 ML Vial ONE (10:44)
[2023-05-05 11:42] LABS: Bilirubin Negative (Negative); Blood, Urine Negative (Negative); Clarity Clear (Clear); Glucose, Urine (Dipstick) Negative (Negative); Ketone, Urine Negative (Negative); Leukocyte Negative (Negative); Nitrite Negative (Negative); Protein, Urine (Dipstick) Negative (Neg-Trace); Urobilinogen 0.2 mg/dL (Less than 2)
[2023-05-05 11:59] LABS: Bacteria/HPF None Seen HPF (None Seen); CAUTI Indications for Culture Pelvic or flank pain; RBC/HPF None Seen HPF (0-3); Squamous Epithelial 0-3 HPF (0-3); Urine Culture Reflex No No; WBC/HPF None Seen HPF (0-3)
[2023-05-05] MEDS ORDERED: Acetaminophen 500 MG TAB ONE (12:27)
[2023-05-05 13:13] LABS: Troponin I Less than 0.010 ng/mL (< 0.028)
[2023-05-05 16:44] LABS: Troponin I Less than 0.010 ng/mL (< 0.028)
== END 2023-05-05 16:44 | disposition short-term general hospital (02) ==
LOC: NAV ERS 09:12
DX: I48.91 Unspecified atrial fibrillation (principal)
CPT/HCPCS: 36415; 71046; 80053; 81001; 84443; 84484; 85025; 93005; 94760; 96361; 96365; 96375; J0153; J0282; J2272; J2405

== ENCOUNTER 2023-08-06 16:03 | Emergency (ER) | payer BC, OTHER ==
[2023-08-06] MEDS ORDERED: Naproxen 500 MG TAB ONE (17:17)
[2023-08-06] MEDS ORDERED: Acetaminophen/Codeine 30-300mg Tablet ONE (17:19)
== END 2023-08-06 17:26 | disposition home or self-care (01) ==
LOC: NAV ERS 16:03
DX: S83.91XA Sprain of unspecified site of right knee, initial encounter (principal); V89.2XXA Person injured in unspecified motor-vehicle accident, traffic, initial encounter

== ENCOUNTER 2023-08-08 15:56 | Emergency (ER) | payer BC, OTHER ==
[2023-08-08] MEDS ORDERED: Cyclobenzaprine 10 MG TAB ONE (16:35)
== END 2023-08-08 17:44 | disposition home or self-care (01) ==
LOC: NAV ERS 15:56
DX: S13.4XXA Sprain of ligaments of cervical spine, initial encounter (principal); G44.309 Post-traumatic headache, unspecified, not intractable; M62.838 Other muscle spasm; V89.2XXA Person injured in unspecified motor-vehicle accident, traffic, initial encounter
CPT/HCPCS: 70450; 72125

== ENCOUNTER → 2024-02-15 | Emergency (ER) | payer BC ==
[~2024-02-15] MED LIST changes: +HYDROcodone/Acetaminophen 5/325 mg Tablet ONE; -Iopamidol 370 76% 100 ML VIAL ONE
[2024-02-15 20:30] LABS: #Eosinophils 0.1 thou/uL (0.0-0.7); #Lymphocytes 1.9 thou/uL (1.20-3.40); #Monocytes 0.3 thou/uL (0.11-0.59); #Neutrophils 2.9 thou/uL (1.40-6.50); %Basophils 0.8 % (0.0-1.0); %Lymphocytes 36.4 % (21.0-51.0); %Monocytes 6.2 % (0.0-10.0); %Neutrophils 55.6 % (42.0-75.0); Hematocrit 36.1 % (36.0-47.0); Hemoglobin 12.8 g/dL (12.0-16.0); Mean Corpuscular HGB CONC 35.3 g/dL (32.0-36.0); Mean Corpuscular Volume 93.5 fl (78.0-98.0); Mean Platelet Volume 9.2 fL (7.4-10.4); Platelet Count 168 10x3/uL (130-400); RBC Distribution Width 10.5 % (11.5-14.5); Red Blood Cell (RBC) Count 3.86 mill/uL (4.20-5.40); White Blood Cell (WBC) Count 5.2 10x3/uL (4.8-10.8)
[2024-02-15 20:32] LABS: Bilirubin Negative (Negative); Blood, Urine Trace (Negative); Clarity Clear (Clear); Glucose, Urine (Dipstick) Negative (Negative); Ketone, Urine Negative (Negative); Leukocyte Negative (Negative); Nitrite Negative (Negative); Protein, Urine (Dipstick) Negative (Neg-Trace); Specific Gravity, Urine 1.025 (1.005-1.030); Urobilinogen 0.2 mg/dL (Less than 2)
[2024-02-15 20:39] LABS: CAUTI Indications for Culture Dysuria,urgency,freq; WBC/HPF 0-3 HPF (0-3)
[2024-02-15 20:40] LABS: Bacteria/HPF Rare-Few HPF (None Seen); Urine Culture Reflex No No
== END ==
LOC: NAV ERS 19:01
DX: R53.81 Other malaise (principal); R31.9 Hematuria, unspecified; R59.0 Localized enlarged lymph nodes
CPT/HCPCS: 36415; 74176; 81001; 85025; 86308; 87040

== ENCOUNTER 2024-03-19 17:42 | Emergency (ER) | payer BC ==
[~2024-03-19 17:42] MED LIST changes: -HYDROcodone/Acetaminophen 5/325 mg Tablet ONE; +Iopamidol 370 76% 100 ML VIAL ONE
[2024-03-19 18:33] LABS: Bilirubin Negative (Negative); Blood, Urine Negative (Negative); Glucose, Urine (Dipstick) Negative (Negative); Ketone, Urine Negative (Negative); Leukocyte Negative (Negative); Nitrite Negative (Negative); Protein, Urine (Dipstick) Negative (Neg-Trace); Specific Gravity, Urine 1.025 (1.005-1.030); Urobilinogen 0.2 mg/dL (Less than 2)
[2024-03-19 18:47] LABS: CAUTI Indications for Culture Pelvic or flank pain; Clarity Hazy (Clear); Transitional Epithelial 0-3 HPF (None Seen); WBC/HPF None Seen HPF (0-3)
[2024-03-19 18:48] LABS: Urine Culture Reflex No No
[2024-03-19] MEDS ORDERED: Promethazine HCl 25 MG/ML VIAL ONE (19:13)
[2024-03-19] MEDS ORDERED: Morphine 2 MG/ML VIAL ONE ×2 (19:13→22:12)
[2024-03-19] MEDS ORDERED: Sodium Chloride 0.9% 1,000 ML ONE (19:13)
[2024-03-19 19:52] LABS: #Lymphocytes 1.3 thou/uL (1.20-3.40); #Monocytes 0.2 thou/uL (0.11-0.59); #Neutrophils 3.8 thou/uL (1.40-6.50); %Basophils 0.6 % (0.0-1.0); %Eosinophils 0.6 % (0.0-10.0); %Lymphocytes 24.6 % (21.0-51.0); %Neutrophils 70.2 % (42.0-75.0); Hematocrit 37.8 % (36.0-47.0); Hemoglobin 12.5 g/dL (12.0-16.0); Mean Corpuscular HGB CONC 33.2 g/dL (32.0-36.0); Mean Corpuscular Hemoglobin 31.2 pg (27.0-31.0); Mean Corpuscular Volume 94.1 fl (78.0-98.0); Mean Platelet Volume 8.8 fL (7.4-10.4); Platelet Count 194 10x3/uL (130-400); RBC Distribution Width 10.6 % (11.5-14.5); Red Blood Cell (RBC) Count 4.01 mill/uL (4.20-5.40); White Blood Cell (WBC) Count 5.4 10x3/uL (4.8-10.8)
[2024-03-19 19:53] LABS: ALT (SGPT) 10 U/L (8-55); AST (SGOT) 15 U/L (5-34); Albumin 4.1 g/dL (3.5-5.0); Alkaline Phosphatase 52 U/L (40-110); Anion Gap 12 mmol/L (10-20); BUN (Urea Nitrogen) 10 mg/dL (7.0-18.7); Bilirubin, Total 0.2 mg/dL (0.2-1.2); Calc. Creatinine Clearance 0 mL/min (70-130); Calcium 9.3 mg/dL (7.8-10.44); Carbon Dioxide 25 mmol/L (22-29); Chloride 108 mmol/L (98-107); Estimated GFR 102; Globulin 2.7 g/dL (2.4-3.5); Glucose 96 mg/dL (70-105); Lipase 208 U/L (8-78); Potassium 4.1 mmol/L (3.5-5.1); Protein, Total 6.8 g/dL (6.0-8.3); Sodium 141 mmol/L (136-145)
[2024-03-19] MEDS ORDERED: Dextrose 5 %-0.45 % NaCl 1,000 ML ONE (21:06)
== END 2024-03-19 22:34 | disposition short-term general hospital (02) ==
LOC: NAV ERS 17:42
DX: K85.90 Acute pancreatitis without necrosis or infection, unspecified (principal)
CPT/HCPCS: 74177; 80053; 81001; 83690; 85025; 96361; 96374; 96375; J2272; J2550; J7030; J7042; Q9967

== ENCOUNTER 2024-04-06 11:05 | Outpatient (CLI) | payer BC | END 2024-04-06 11:06 | disposition home or self-care (01) | LOC: NAV RAD 11:05 | PROVIDERS: ATTEND Physician Assistant Surgical | DX: M47.12 Other spondylosis with myelopathy, cervical region (principal); M47.22 Other spondylosis with radiculopathy, cervical region | CPT/HCPCS: 72050 ==

== ENCOUNTER 2024-04-19 12:24 | Outpatient (CLI) | payer BC | END 2024-04-19 12:25 | disposition home or self-care (01) | LOC: NAV RAD 12:24 | PROVIDERS: ATTEND Neurological Surgery | DX: M50.122 Cervical disc disorder at C5-C6 level with radiculopathy (principal); M50.123 Cervical disc disorder at C6-C7 level with radiculopathy | CPT/HCPCS: 72050 ==

== ENCOUNTER 2024-11-07 07:41 | Emergency (ER) | payer BC | END 2024-11-07 08:45 | disposition home or self-care (01) | LOC: NAV ERS 07:41 | DX: M54.2 Cervicalgia (principal); G89.29 Other chronic pain | CPT/HCPCS: 99283 ==

== ENCOUNTER 2024-11-22 07:56 | Outpatient (CLI) | payer BC | END 2024-11-22 07:57 | disposition home or self-care (01) | LOC: NAV RAD 07:56 | PROVIDERS: ATTEND Neurological Surgery | DX: M50.022 Cervical disc disorder at C5-C6 level with myelopathy (principal); M47.12 Other spondylosis with myelopathy, cervical region; Z98.1 Arthrodesis status | CPT/HCPCS: 72050 ==